=== PATIENT | male | born 1945 | race Caucasian/White ===

== ENCOUNTER 2017-08-27 10:21 | Inpatient (IN) | payer MEDICARE, OTHER, SELFPAY ==
[2017-08-27] VITALS (18 sets, daily range): BP systolic 112–142; BP diastolic 48–88; PULSE 78–107; RESP 14–18; TEMP 37.1–37.4; O2SAT 92–98; BMI 24.9
--- NOTE | 2017-08-27 | PATH_ITS ---
[facility] Accession Number: [id number] . 01 Material submitted: . APPENDIX . 02 Diagnosis: Appendix, Laparoscopic Appendectomy: Acute appendicitis and serositis. MRV/08/30/2017 . 02 Electronically signed: . Krystle Flores MD, Pathologist NPI- [id number] . 01 Gross description: . Received in formalin, labeled 1. Appendix, is an intact appendix (length-5.1 cm, diameter-up to 1.2 cm). The resection margin is received opened. The serosa is urias-pink smooth and shiny and partially covered in urias flaky friable exudate. The lumen contains burton-pink solid soft material. The wall is up to 0.3 cm thick. No nodules, masses or lesions are identified. The resection margin is inked black. Section code: (A1) resection margin en face and two additional slices; (A2) one-half of the bivalved tip. ([id number]) /MRV . 02 Pathologist provided ICD-10: K35.80 . 02 CPT . 996936 Performed at: 01 [facility] [address] [place] [address], [place], [place] [id number] MD Adrian Paz MD Phone: [phone] Performed at: 02 [facility] [address] [place], [place] [id number] MD Ad Burgos MD Phone: [phone]
--- NOTE | 2017-08-27 10:40 | DI.CT.S_ITS ---
PROCEDURE: CT ABDOMEN PELVIS W CON INDICATIONS: RLQ Pain TECHNIQUE: After the administration of intravenous contrast, 5 mm thick sections acquired from the diaphragm to the symphysis. 5 mm coronal and sagittal reformats were acquired. For radiation dose reduction, the following was used: automated exposure control, adjustment of mA and/or kV according to patient size. COMPARISON: None. FINDINGS: Image quality: Excellent. ABDOMEN: Lung bases: Lung bases are clear. Heart size is normal. Solid organs: Liver is normal in size and enhancement. Gallbladder appears normal, partially contracted. Biliary system is non dilated. Pancreas enhances normally. Spleen is normal in size and enhancement. No adrenal nodules. Kidneys demonstrate normal size and enhancement, without hydronephrosis. Incidental note is made of an exophytic anterior left renal cortical cysts measuring up to 3.5 cm. Peritoneum and bowel: Bowel loops demonstrate normal wall thickness but the colonic caliber is collapsed in the small bowel caliber is largely fluid-distended over the upper and midabdomen. No free air. There is a small amount of free fluid Nodes and vessels: No retroperitoneal or mesenteric adenopathy by size criteria. Aorta and inferior vena cava are normal in size. Miscellaneous: No ventral hernias. The anatomy of the right lower quadrant and right lower abdomen is somewhat complex, and the colon is relatively collapsed when compared to small bowel loops that are abnormally fluid distended. The ileocecal valve is located at the right lower abdomen (series 2 image 48) and slightly more inferiorly emanating from the medial border of the cecum is a structure likely the appendix (image 53 which appears inflamed (image 55) and abnormally enlarged in caliber at 1.7 cm. This structure then appears to curved medially for short distance and terminates (image 57). There is a portion of the small bowel that is collapsed at the right lower abdomen (see the lateral border on the right in series 2 image 56). PELVIS: Genitourinary: Bladder wall thickness is normal. Miscellaneous: No inguinal hernias or adenopathy. Bones: No suspicious bony lesions. No vertebral body compression fractures. IMPRESSION: High-grade small bowel obstructive pattern but with relative collapse of the small bowel at the distal ileum and the colon also appears collapsed. The etiology is suspected to be a sequela of acute appendicitis involving a short segment appendix, discussed above, with appendiceal diameter measuring up to 1.7 cm. The as noted above this structure appears to emanate from the medial border of the cecum, appears inflamed, and then terminates abruptly. Assuming that this does represent the appendix it is only estimated to be approximately 4-5 centimeters in length. Surgical consultation is recommended. Dictated by: Chong Meadows M.D. on 08/27/2017 at 12:16 Approved by: Chong Meadows M.D. on 08/27/2017 at 12:26
[2017-08-27] MEDS: SODIUM CHLORIDE 0.9% 1,000 ML 250 ML IV (11:05)
[2017-08-27 11:06] LABS: Bacteria Urine None Seen; WBC Urine None Seen (0-5/HPF)
[2017-08-27 11:07] LABS: Appearance Urine UA CLEAR; Bilirubin Urine UA 2+ (NEGATIVE); Color Urine UA YELLOW; Glucose Urine UA NEGATIVE (Normal); Ketones Urine UA NEGATIVE (NEGATIVE); Leukocyte Esterase Urine UA NEGATIVE (NEGATIVE); Nitrite Urine UA Negative (Negative); Occult Blood Urine UA 2+ (Negative); Protein Urine UA 2+ (Negative); Specific Gravity Urine UA >=1.030 (1.000-1.035); Urobilinogen Urine UA 0.2 E.U./dL (0.2)
[2017-08-27] MEDS: DICYCLOMINE 10 MG CAPSULE 20 MG PO (11:15)
[2017-08-27] MEDS: ONDANSETRON 8 MG in SODIUM CHLORIDE 0.9% 50 ML 216 ML IV (11:15)
[2017-08-27 11:25] LABS: Hyaline Casts Urine 5-10/LPF; RBC Urine 5-10/HPF (0-5/HPF); Squamous Epithelial Cell Urine 1-5 /HPF
[2017-08-27 11:26] LABS: Culture Indicated Urine Cult Not Indicated; Ictotest Urine Positive (Negative)
[2017-08-27 11:28] LABS: Add Manual Diff / Slide Review NO; Basophils Percent Auto 0.1 % (0-2); Hematocrit 41.6 % (41-53); Hemoglobin 14.5 g/dL (13.5-17.5); Mean Corpuscular HGB Conc 34.9 % (30-36); Mean Corpuscular Hemoglobin 35.3 PG (26-34); Mean Corpuscular Volume 101.2 fL (80-100); Monocytes Percent Auto 4.5 % (3-14); Neutrophils Absolute Auto 12500 /uL (3000-5900); Neutrophils Percent Auto 88.4 % (50-75); Platelet Count 135 X10^3/uL (150-400); Red Blood Cell Count 4.11 X10^6/uL (4.5-5.9); Red Cell Distribution Width 12.6 % (11.6-14.8); White Blood Cell Count 14.1 X10^3/uL (4.5-11.0)
[2017-08-27 11:42] LABS: Alanine Aminotransferase 24 IU/L (21-72); Albumin 4.7 g/dL (3.5-5.0); Albumin Globulin Ratio 1.1 (1.0-2.8); Alkaline Phosphatase 66 U/L (38-126); Aspartate Aminotransferase 32 IU/L (17-59); BUN Creatinine Ratio 25.5 (6-22); Bilirubin Total 1.1 mg/dL (0.2-1.3); Blood Urea Nitrogen 28 mg/dL (9-20); Calcium 10.1 mg/dL (8.4-10.2); Carbon Dioxide 34 mmol/L (22-32); Chloride 92 mmol/L (98-107); Estimated Glomerular Filt Rate > 60.0 mL/min (>60); Globulin 4.2 g/dL (1.7-4.1); Glucose 130 mg/dL (80-110); HEMOLYSIS 23 (0-50); Lactate (Lactic Acid) 1.6 mmol/L (0.7-2.1); Lipase 68 U/L (23-300); Potassium 3.7 mmol/L (3.4-5.1); Sodium 140 mmol/L (137-145); Total Protein 8.9 g/dL (6.3-8.2)
[2017-08-27 12:08] LABS: Procalcitonin 3.15 ng/mL (<0.5)
--- NOTE | 2017-08-27 12:45 | PC.NURSE ---
rtr from ct, iv now reconected. pt resting
[2017-08-27] MEDS: AMPICILLIN/SULBACTAM 3 GM 3 GM in SODIUM CHLORIDE 0.9% 100 ML IV (14:04)
--- NOTE | 2017-08-27 14:27 | DI.RAD.S_ITS ---
PROCEDURE: XR ABDOMEN 1V INDICATIONS: nasal gastric tube placement TECHNIQUE: One view of the abdomen acquired. COMPARISON: None. FINDINGS: Surgical changes and devices: Gastric tube placed, reportedly nasogastric, with tip in the gastric body area, superiorly. Side port is well within the gastric lumen.. Bowel: Bowel gas pattern is normal. Soft tissues: No suspicious abdominal calcifications. Visualized solid organ contours appear normal in size. Bones: No suspicious bony lesions. IMPRESSION: Esophagogastric tube placement appears normal. Dictated by: Chong Meadows M.D. on 08/27/2017 at 14:55 Approved by: Chong Meadows M.D. on 08/27/2017 at 14:56
--- NOTE | 2017-08-27 15:01 | ED_ITS ---
HPI - Abdominal Pain General Chief Complaint: Abdominal Pain Stated Complaint: THINKS HE'S HAVING PROBLEMS WITH APPENDIX Time Seen by Provider: 08/27/17 10:28 History of Present Illness HPI narrative: HPI 71-year-old male presents for evaluation of 3 days of frequent loose watery stools, decreased PO intake, postprandial emesis, and mild to moderate diffuse crampy abdominal discomfort. * Character: non-bloody, no mucus, no pus. * Frequency: reports Q30 minute loose watery stools. * Duration: 3 days * Denies: recent antibiotics, fresh or salt water exposure, recent hospitalization, travel, drinking untreated water, history of c. difficile. * Fever/chills/rigors: denies. * HIV or immunocompromise: denies. * Cough: denies. M/S/F/SocHx notable for: CAD; remainder reviewed with patient and in chart. ROS: Negative constitutional, eye, cardiovascular, pulmonary, GI, , MSK, skin , neurologic, psychiatric, endocrine unless noted in the HPI. Exam Gen: Pleasant, non-toxic appearing, resting comfortably. HEENT: NC, AT, PEERL, EOMI, neck supple with full range of movement. Resp: Clear to auscultation bilaterally, normal work of breathing, no accessory muscle usage. Card: Regular rate and rhythm with no murmurs, rubs, or gallops, extremities warm and well perfused. GI: mild diffuse, right greater than left sided tenderness to palpation, no focal reproducible areas of tenderness, negative Farah sign, no rebound, no guarding. : No suprapubic tenderness to palpation. MSK: No visible deformities, strength and tone without visually appreciable deficit. Skin: Normal color with no visible lesions. Neuro: AO x 3, no facial asymmetry, vision and hearing WNL. Psych: Mood and affect appropriate. Labs / Imaging (pertinent): WBC 14.1, hemoglobin 14.5, sodium 140, potassium 3.7, lactic acid 1.6, creatinine 1.10, Procalcitonin 3.15 UA - 2+ occult blood, negative nitrate, negative leukocyte esterase, no bacteria. CT abdomen/pelvis: high grade small bowel obstruction pattern but with relative collapses small bowel of the distal ileum in the colon also appears collapse. The etiology is suspected to be sequela of acute appendicitis involving short segment appendix, discussed above, with appendiceal diameter measuring up to 1.7 cm. The as noted above this structure appears to emanate from the medial border of the cecum, appears inflamed, and then terminates abruptly. Assuming that this does represent the appendix is only estimated to be approximately 4-5 cm in length. Surgical consultation is recommended. MDM Previous chart, nursing note, and vitals reviewed. A: 71-year-old male presents for evaluation of 3 days of frequent loose watery stools, decreased PO intake, postprandial emesis, and mild to moderate diffuse crampy abdominal discomfort. DDx: viral enteritis, viral gastroenteritis, bacterial gastroenteritis, food poisoning, C. Difficile, dehydration, electrolyte abnormalities, septicemia/ bacteremia, DKA, acute appendicitis, inflammatory (Crohn?s vs ulcerative colitis ). Evaluation: patient given IV hydration and Bentyl for initial symptomatic management. Initial labs concerning for a bacterial enteritis process. Imaging notable for high grade small bowel obstruction and likely acute appendicitis. Dr. Chavez, the general surgeon nurse practitioner physician assistant consulted. Unasyn given a NG placed at surgery's request. Pt admitted. Impression: obstruction, appendicitis. (please reference below for remainder of encounter information) Related Data Home Medications Medication Instructions Recorded Confirmed Naturepathic Meds 1 dose PO DAILY 08/27/17 08/27/17 aspirin 162 mg PO BEDTIME 08/27/17 08/27/17 ezetimibe 10 mg PO QPM 08/27/17 08/27/17 lisinopril 10 mg PO BEDTIME 08/27/17 08/27/17 rosuvastatin 40 mg PO BEDTIME 08/27/17 08/27/17 Allergies Allergy/AdvReac Type Severity Reaction Status Date / Time No Known Drug Allergies Allergy Verified 08/27/17 11:14 Exam Initial Vital Signs Initial Vital Signs: Vital Signs Temperature 99.1 F 08/27/17 10:27 Pulse Rate 97 H 08/27/17 10:27 Respiratory Rate 18 08/27/17 10:27 Blood Pressure 138/88 H 08/27/17 10:27 Pulse Oximetry 98 08/27/17 10:27 Course Orders Ordered: ED Orders 08/27/17 10:40 CT abdomen pelvis w con Stat 08/27/17 10:58 Ictotest Urine Stat Urinalysis and Microscopic Stat 08/27/17 11:05 Complete Blood Count AUTO DIFF Stat Comprehensive Metabolic Panel Stat Lactate (Lactic Acid) Stat Lipase Stat Magnesium Stat Procalcitonin Stat 08/27/17 14:27 XR abdomen 1V Stat Discontinued Medications Dicyclomine HCl (Bentyl) 20 mg PO NOW ONE Stop: 08/27/17 10:41 Last Admin: 08/27/17 11:15 Dose: 20 mg Ondansetron HCl 8 mg/ Sodium (Chloride) 54 mls @ 216 mls/hr IV NOW ONE Stop: 08/27/17 10:41 Last Infusion: 08/27/17 11:38 Dose: 0 mls/hr Admin: 08/27/17 11:15 Dose: 216 mls/hr Sodium Chloride (Normal Saline 0.9%) 1,000 mls @ 1,000 mls/hr IV BOLUS ONE Stop: 08/27/17 11:39 Last Infusion: 08/27/17 14:04 Dose: 0 mls/hr Infusion: 08/27/17 11:39 Dose: 999 mls/hr Admin: 08/27/17 11:05 Dose: 250 mls/hr Ampicillin Sodium/Sulbactam (Sodium 3 gm/ Sodium Chloride) 100 mls @ 100 mls/ hr IV NOW ONE Stop: 08/27/17 13:31 Last Admin: 08/27/17 14:04 Dose: 100 mls/hr Vital Signs - 8 hr 08/27/17 10:27 08/27/17 11:00 08/27/17 12:22 Temperature 99.1 F Pulse Rate 97 H 107 H 93 H Respiratory Rate 18 Blood Pressure 138/88 H Blood Pressure [Right Arm] 113/78 120/74 Pulse Oximetry 98 94 08/27/17 12:30 08/27/17 13:00 08/27/17 13:33 Temperature Pulse Rate 98 H 89 90 Respiratory Rate 16 Blood Pressure Blood Pressure [Right Arm] 121/79 H 121/72 H 128/72 H Pulse Oximetry 95 93 93 08/27/17 14:00 Temperature Pulse Rate 94 H Respiratory Rate 15 Blood Pressure Blood Pressure [Right Arm] 126/76 H Pulse Oximetry 97 MDM - Abdominal Pain Lab Data Result diagrams: 08/27/17 11:05 08/27/17 11:05 Lab Results 08/27/17 08/27/17 08/27/17 Range/Units 10:58 11:05 11:05 WBC 14.1 H (4.5-11.0) X10^3/uL RBC 4.11 L (4.5-5.9) X10^6/uL Hgb 14.5 (13.5-17.5) g/dL Hct 41.6 (41-53) % MCV 101.2 H (80-100) fL MCH 35.3 H (26-34) PG MCHC 34.9 (30-36) % RDW 12.6 (11.6-14.8) % Plt Count 135 L (150-400) X10^3/uL Neut % (Auto) 88.4 H (50-75) % Lymph % (Auto) 7.0 L (25-40) % [place] % (Auto) 4.5 (3-14) % Eos % (Auto) 0.0 L (2-4) % Baso % (Auto) 0.1 (0-2) % Neut # (Auto) 00377 H (5871-5042) /uL Sodium (137-145) mmol/L Potassium (3.4-5.1) mmol/L Chloride (98-107) mmol/L Carbon Dioxide (22-32) mmol/L BUN (9-20) mg/dL Creatinine (0.66-1.25) mg/dL Estimated GFR (>60) mL/min BUN/Creatinine Ratio (6-22) Glucose (80-110) mg/dL Lactate (0.7-2.1) mmol/L Calcium (8.4-10.2) mg/dL Magnesium (1.6-2.3) mg/dL Total Bilirubin (0.2-1.3) mg/dL AST (17-59) IU/L ALT (21-72) IU/L Alkaline Phosphatase (38-126) U/L Total Protein (6.3-8.2) g/dL Albumin (3.5-5.0) g/dL Globulin (1.7-4.1) g/dL Albumin/Globulin Ratio (1.0-2.8) Lipase (23-300) U/L Procalcitonin 3.15 H (<0.5) ng/mL Urine Color Yellow Urine Appearance Clear Urine pH 5.0 (4.5-8.0) Ur Specific [place] >=1.030 H (1.000-1.035) Urine Protein 2+ H (Negative) Urine Glucose (UA) Negative (Normal) g/dL Urine Ketones Negative (NEGATIVE) Urine Occult Blood 2+ H (Negative) Urine Nitrate Negative (Negative) Urine Bilirubin 2+ H (NEGATIVE) Urine Ictotest Positive H (Negative) Urine Urobilinogen 0.2 (0.2) E.U./dL Ur Leukocyte Esterase Negative (NEGATIVE) Urine RBC 5-10/hpf H (0-5/HPF) Urine WBC None seen (0-5/HPF) Ur Squamous Epith Cells 1-5 /hpf Urine Bacteria None seen (None) Hyaline Casts 5-10/lpf (None) Ur Culture Indicated? Cult not indicated Micro UA Comment Not Reportable 08/27/17 08/27/17 Range/Units 11:05 11:05 WBC (4.5-11.0) X10^3/uL RBC (4.5-5.9) X10^6/uL Hgb (13.5-17.5) g/dL Hct (41-53) % MCV (80-100) fL MCH (26-34) PG MCHC (30-36) % RDW (11.6-14.8) % Plt Count (150-400) X10^3/uL Neut % (Auto) (50-75) % Lymph % (Auto) (25-40) % [place] % (Auto) (3-14) % Eos % (Auto) (2-4) % Baso % (Auto) (0-2) % Neut # (Auto) (7789-0077) /uL Sodium 140 (137-145) mmol/L Potassium 3.7 (3.4-5.1) mmol/L Chloride 92 L (98-107) mmol/L Carbon Dioxide 34 H (22-32) mmol/L BUN 28 H (9-20) mg/dL Creatinine 1.10 (0.66-1.25) mg/dL Estimated GFR > 60.0 (>60) mL/min BUN/Creatinine Ratio 25.5 H (6-22) Glucose 130 H (80-110) mg/dL Lactate 1.6 (0.7-2.1) mmol/L Calcium 10.1 (8.4-10.2) mg/dL Magnesium 3.0 H (1.6-2.3) mg/dL Total Bilirubin 1.1 (0.2-1.3) mg/dL AST 32 (17-59) IU/L ALT 24 (21-72) IU/L Alkaline Phosphatase 66 (38-126) U/L Total Protein 8.9 H (6.3-8.2) g/dL Albumin 4.7 (3.5-5.0) g/dL Globulin 4.2 H (1.7-4.1) g/dL Albumin/Globulin Ratio 1.1 (1.0-2.8) Lipase 68 (23-300) U/L Procalcitonin (<0.5) ng/mL Urine Color Urine Appearance Urine pH (4.5-8.0) Ur Specific [place] (1.000-1.035) Urine Protein (Negative) Urine Glucose (UA) (Normal) g/dL Urine Ketones (NEGATIVE) Urine Occult Blood (Negative) Urine Nitrate (Negative) Urine Bilirubin (NEGATIVE) Urine Ictotest (Negative) Urine Urobilinogen (0.2) E.U./dL Ur Leukocyte Esterase (NEGATIVE) Urine RBC (0-5/HPF) Urine WBC (0-5/HPF) Ur Squamous Epith Cells Urine Bacteria (None) Hyaline Casts (None) Ur Culture Indicated? Micro UA Comment Discharge Plan Departure Admit Date/Time: 08/27/17 14:43 Admit Provider: Quique Chavez
--- NOTE | 2017-08-27 16:04 | PM.HP.1 ---
History of Present Illness Date Patient Seen: 08/27/17 Time Patient Seen: 14:04 Chief complaint: Small bowel obstruciton, appendicitis Narrative: Patient is a gentleman who developed abdominal pain and diarrhea 3 days ago. He had 2 episodes of diarrhea and then was does passing what he describes is mostly just a little bit of liquid. He has not been able to eat due to nausea and vomiting for at least 2 days. This has never happened to him before. The pain increases with movement. It is a fairly persistent pain/dull ache with exacerbations with movement. Patient History Medical History Essential hypertension (Acute) Hypercholesterolemia (Acute) History of arm fracture (Resolved) History of lower leg fracture (Resolved) History of myocardial infarction in adulthood (Inactive) Surgical History Hx of heart artery stent (Inactive) Family & Social History Family History: Reviewed 08/27/17 by Quique Chavez MD Tobacco & Substance use: alcohol intake frequency 0-2 drinks per day Substance Use Type does not use Does not smoke and never has Meds Home Medications Medication Instructions Recorded Confirmed Type Naturepathic Meds 1 dose PO DAILY 08/27/17 08/27/17 History aspirin 162 mg PO BEDTIME 08/27/17 08/27/17 History ezetimibe 10 mg PO QPM 08/27/17 08/27/17 History lisinopril 10 mg PO BEDTIME 08/27/17 08/27/17 History rosuvastatin 40 mg PO BEDTIME 08/27/17 08/27/17 History Allergies Allergy/AdvReac Type Severity Reaction Status Date / Time No Known Drug Allergies Allergy Verified 08/27/17 11:14 Review of Systems Review of Systems Patient denies any double vision or pain is eyes. He does were glasses. No earache sore throat. No trouble swallowing. No cough cold or asthma. No chest pain. He is very active. He had a heart attack at age 43 and a stent that failed but he has had no symptoms for years and has seen the same ski patrol for the last 30. He is basically treated for hypertension and for elevated cholesterol. Patient denies black or bloody bowel movements. He does not know when his last colonoscopy was but thinks he is current. He has had problems urinating because of decreased output since he has been sick. Ordinarily has no problems. No history kidney stones. He thinks he starting develop arthritis in his knees. No chronic joint or muscle pain at this time. Patient has no blood in his stool and has not vomited any blood. No problems with his pancreas of thyroid he is aware of. No psychiatric illnesses like depression or anxiety. No unusual bruising or bleeding. Exam Vital Signs (past 8 hours): Vital Signs - 8 hr 08/27/17 10:27 08/27/17 11:00 08/27/17 12:22 Temperature 99.1 F Pulse Rate 97 H 107 H 93 H Respiratory Rate 18 Blood Pressure 138/88 H Blood Pressure [Right Arm] 113/78 120/74 Pulse Oximetry 98 94 08/27/17 12:30 08/27/17 13:00 08/27/17 13:33 Temperature Pulse Rate 98 H 89 90 Respiratory Rate 16 Blood Pressure Blood Pressure [Right Arm] 121/79 H 121/72 H 128/72 H Pulse Oximetry 95 93 93 08/27/17 14:00 08/27/17 15:10 Temperature Pulse Rate 94 H 97 H Respiratory Rate 15 Blood Pressure Blood Pressure [Right Arm] 126/76 H 136/71 H Pulse Oximetry 97 92 Pulse Oximetry 92 Oxygen Delivery Method Room Air Narrative Exam Narrative: Operative gentleman no apparent distress. His eyes are nonicteric pupils are equal round reactive like conjunctiva are pink. Ears without lesion. Nasal septum is midline no obvious polyps. Oral mucosa is pink and moist no open lesions. Teeth are intact looking good shape. The splits is lips. There are no nodes in the neck or supraclavicular areas. Trachea is midline and mobile. Thyroid isn't enlarged. Lungs are clear to auscultation without rales or rhonchi. Equal percussion. Heart regular rate and rhythm without murmur gallop. No heave buckle wire inserter thrill. His abdomen is distended and soft. He has localized tenderness the right lower quadrant with some referred tenderness to the right lower quadrant. The remainder of his abdomen that was essentially nontender. He has no hernia and normal pitch hyper active bowel sounds. No obvious enlargement of his liver spleen. His hair pattern in his legs is a normal adult pattern. Reaches to his feet. He has 2+ dorsalis pedis pulses. The patient is alert and oriented x3. Speech rate and content are appropriate. Objective Imaging CT scan - abdomen: My impression: CT is consistent with appendicitis causing a small-bowel obstruction. There is dilatation of the small bowel and the stomach is somewhat dilated as well. Radiologist's impression: Confirms the above. Labs Result Diagrams: 08/27/17 11:05 08/27/17 11:05 Labs: Laboratory Results - last 24 hr 08/27/17 08/27/17 08/27/17 10:58 11:05 11:05 WBC 14.1 H RBC 4.11 L Hgb 14.5 Hct 41.6 MCV 101.2 H MCH 35.3 H MCHC 34.9 RDW 12.6 Plt Count 135 L Neut % (Auto) 88.4 H Lymph % (Auto) 7.0 L [place] % (Auto) 4.5 Eos % (Auto) 0.0 L Baso % (Auto) 0.1 Neut # (Auto) 88878 H Sodium Potassium Chloride Carbon Dioxide BUN Creatinine Estimated GFR BUN/Creatinine Ratio Glucose Lactate Calcium Magnesium Total Bilirubin AST ALT Alkaline Phosphatase Total Protein Albumin Globulin Albumin/Globulin Ratio Lipase Procalcitonin 3.15 H Urine Color Yellow Urine Appearance Clear Urine pH 5.0 Ur Specific [place] >=1.030 H Urine Protein 2+ H Urine Glucose (UA) Negative Urine Ketones Negative Urine Occult Blood 2+ H Urine Nitrate Negative Urine Bilirubin 2+ H Urine Ictotest Positive H Urine Urobilinogen 0.2 Ur Leukocyte Esterase Negative Urine RBC 5-10/hpf H Urine WBC None seen Ur Squamous Epith Cells 1-5 /hpf Urine Bacteria None seen Hyaline Casts 5-10/lpf Ur Culture Indicated? Cult not indicated Micro UA Comment Not Reportable 08/27/17 08/27/17 11:05 11:05 WBC RBC Hgb Hct MCV MCH MCHC RDW Plt Count Neut % (Auto) Lymph % (Auto) [place] % (Auto) Eos % (Auto) Baso % (Auto) Neut # (Auto) Sodium 140 Potassium 3.7 Chloride 92 L Carbon Dioxide 34 H BUN 28 H Creatinine 1.10 Estimated GFR > 60.0 BUN/Creatinine Ratio 25.5 H Glucose 130 H Lactate 1.6 Calcium 10.1 Magnesium 3.0 H Total Bilirubin 1.1 AST 32 ALT 24 Alkaline Phosphatase 66 Total Protein 8.9 H Albumin 4.7 Globulin 4.2 H Albumin/Globulin Ratio 1.1 Lipase 68 Procalcitonin Urine Color Urine Appearance Urine pH Ur Specific [place] Urine Protein Urine Glucose (UA) Urine Ketones Urine Occult Blood Urine Nitrate Urine Bilirubin Urine Ictotest Urine Urobilinogen Ur Leukocyte Esterase Urine RBC Urine WBC Ur Squamous Epith Cells Urine Bacteria Hyaline Casts Ur Culture Indicated? Micro UA Comment Assessment & Plan Plan: Assessment/Plan Narrative: Patient is a gentleman with a distant history of a heart attack who is on medication for hypertension and elevated cholesterol. He is very active and does not have cardiac symptoms. He sees a ski patrol regularly and is not on medications specifically for anything related to his heart. He has a 3 day history of abdominal pain and with tenderness in the right lower quadrant and distention and a CT scan consistent with appendicitis causing an obstruction. It is impossible for me to tell if there is perforation or not. Will proceed to the operating room after broad-spectrum antibiotics. I would like to resuscitate him. NG tube has been placed to the gastric distension. That has been relieved. To the OR later today.
--- NOTE | 2017-08-27 16:17 | P.HP_ITS ---
History of Present Illness Date Patient Seen: 08/27/17 Time Patient Seen: 14:04 Chief complaint: Small bowel obstruciton, appendicitis Narrative: Patient is a gentleman who developed abdominal pain and diarrhea 3 days ago. He had 2 episodes of diarrhea and then was does passing what he describes is mostly just a little bit of liquid. He has not been able to eat due to nausea and vomiting for at least 2 days. This has never happened to him before. The pain increases with movement. It is a fairly persistent pain/dull ache with exacerbations with movement. Patient History Medical History Essential hypertension (Acute) Hypercholesterolemia (Acute) History of arm fracture (Resolved) History of lower leg fracture (Resolved) History of myocardial infarction in adulthood (Inactive) Surgical History Hx of heart artery stent (Inactive) Family & Social History Family History: Reviewed 08/27/17 by Quique Chavez MD Tobacco & Substance use: alcohol intake frequency 0-2 drinks per day Substance Use Type does not use Does not smoke and never has Meds Home Medications Medication Instructions Recorded Confirmed Type Naturepathic Meds 1 dose PO DAILY 08/27/17 08/27/17 History aspirin 162 mg PO BEDTIME 08/27/17 08/27/17 History ezetimibe 10 mg PO QPM 08/27/17 08/27/17 History lisinopril 10 mg PO BEDTIME 08/27/17 08/27/17 History rosuvastatin 40 mg PO BEDTIME 08/27/17 08/27/17 History Allergies Allergy/AdvReac Type Severity Reaction Status Date / Time No Known Drug Allergies Allergy Verified 08/27/17 11:14 Review of Systems Review of Systems Patient denies any double vision or pain is eyes. He does were glasses. No earache sore throat. No trouble swallowing. No cough cold or asthma. No chest pain. He is very active. He had a heart attack at age 43 and a stent that failed but he has had no symptoms for years and has seen the same medical resident for the last 30. He is basically treated for hypertension and for elevated cholesterol. Patient denies black or bloody bowel movements. He does not know when his last colonoscopy was but thinks he is current. He has had problems urinating because of decreased output since he has been sick. Ordinarily has no problems. No history kidney stones. He thinks he starting develop arthritis in his knees. No chronic joint or muscle pain at this time. Patient has no blood in his stool and has not vomited any blood. No problems with his pancreas of thyroid he is aware of. No psychiatric illnesses like depression or anxiety. No unusual bruising or bleeding. Exam Vital Signs (past 8 hours): Vital Signs - 8 hr 3 08/27/17 10:27 08/27/17 11:00 08/27/17 12:22 Temperature 99.1 F Pulse Rate 97 H 107 H 93 H Respiratory Rate 18 Blood Pressure 138/88 H Blood Pressure [Right Arm] 113/78 120/74 Pulse Oximetry 98 94 3 08/27/17 12:30 08/27/17 13:00 08/27/17 13:33 Temperature Pulse Rate 98 H 89 90 Respiratory Rate 16 Blood Pressure Blood Pressure [Right Arm] 121/79 H 121/72 H 128/72 H Pulse Oximetry 95 93 93 3 08/27/17 14:00 08/27/17 15:10 Temperature Pulse Rate 94 H 97 H Respiratory Rate 15 Blood Pressure Blood Pressure [Right Arm] 126/76 H 136/71 H Pulse Oximetry 97 92 Pulse Oximetry 92 Oxygen Delivery Method Room Air Narrative Exam Narrative: Operative gentleman no apparent distress. His eyes are nonicteric pupils are equal round reactive like conjunctiva are pink. Ears without lesion. Nasal septum is midline no obvious polyps. Oral mucosa is pink and moist no open lesions. Teeth are intact looking good shape. The splits is lips. There are no nodes in the neck or supraclavicular areas. Trachea is midline and mobile. Thyroid isn't enlarged. Lungs are clear to auscultation without rales or rhonchi. Equal percussion. Heart regular rate and rhythm without murmur gallop. No heave studio associate thrill. His abdomen is distended and soft. He has localized tenderness the right lower quadrant with some referred tenderness to the right lower quadrant. The remainder of his abdomen that was essentially nontender. He has no hernia and normal pitch hyper active bowel sounds. No obvious enlargement of his liver spleen. His hair pattern in his legs is a normal adult pattern. Reaches to his feet. He has 2+ dorsalis pedis pulses. The patient is alert and oriented x3. Speech rate and content are appropriate. Objective Imaging CT scan - abdomen: My impression: CT is consistent with appendicitis causing a small-bowel obstruction. There is dilatation of the small bowel and the stomach is somewhat dilated as well. Radiologist's impression: Confirms the above. Labs Result Diagrams: 08/27/17 11:05 08/27/17 11:05 Labs: Laboratory Results - last 24 hr 08/27/17 08/27/17 08/27/17 10:58 11:05 11:05 WBC 14.1 H RBC 4.11 L Hgb 14.5 Hct 41.6 MCV 101.2 H MCH 35.3 H MCHC 34.9 RDW 12.6 Plt Count 135 L Neut % (Auto) 88.4 H Lymph % (Auto) 7.0 L [place] % (Auto) 4.5 Eos % (Auto) 0.0 L Baso % (Auto) 0.1 Neut # (Auto) 44184 H Sodium Potassium Chloride Carbon Dioxide BUN Creatinine Estimated GFR BUN/Creatinine Ratio Glucose Lactate Calcium Magnesium Total Bilirubin AST ALT Alkaline Phosphatase Total Protein Albumin Globulin Albumin/Globulin Ratio Lipase Procalcitonin 3.15 H Urine Color Yellow Urine Appearance Clear Urine pH 5.0 Ur Specific [place] >=1.030 H Urine Protein 2+ H Urine Glucose (UA) Negative Urine Ketones Negative Urine Occult Blood 2+ H Urine Nitrate Negative Urine Bilirubin 2+ H Urine Ictotest Positive H Urine Urobilinogen 0.2 Ur Leukocyte Esterase Negative Urine RBC 5-10/hpf H Urine WBC None seen Ur Squamous Epith Cells 1-5 /hpf Urine Bacteria None seen Hyaline Casts 5-10/lpf Ur Culture Indicated? Cult not indicated Micro UA Comment Not Reportable 08/27/17 08/27/17 11:05 11:05 WBC RBC Hgb Hct MCV MCH MCHC RDW Plt Count Neut % (Auto) Lymph % (Auto) [place] % (Auto) Eos % (Auto) Baso % (Auto) Neut # (Auto) Sodium 140 Potassium 3.7 Chloride 92 L Carbon Dioxide 34 H BUN 28 H Creatinine 1.10 Estimated GFR > 60.0 BUN/Creatinine Ratio 25.5 H Glucose 130 H Lactate 1.6 Calcium 10.1 Magnesium 3.0 H Total Bilirubin 1.1 AST 32 ALT 24 Alkaline Phosphatase 66 Total Protein 8.9 H Albumin 4.7 Globulin 4.2 H Albumin/Globulin Ratio 1.1 Lipase 68 Procalcitonin Urine Color Urine Appearance Urine pH Ur Specific [place] Urine Protein Urine Glucose (UA) Urine Ketones Urine Occult Blood Urine Nitrate Urine Bilirubin Urine Ictotest Urine Urobilinogen Ur Leukocyte Esterase Urine RBC Urine WBC Ur Squamous Epith Cells Urine Bacteria Hyaline Casts Ur Culture Indicated? Micro UA Comment Assessment & Plan Plan: Assessment/Plan Narrative: Patient is a gentleman with a distant history of a heart attack who is on medication for hypertension and elevated cholesterol. He is very active and does not have cardiac symptoms. He sees a medical resident regularly and is not on medications specifically for anything related to his heart. He has a 3 day history of abdominal pain and with tenderness in the right lower quadrant and distention and a CT scan consistent with appendicitis causing an obstruction. It is impossible for me to tell if there is perforation or not. Will proceed to the operating room after broad-spectrum antibiotics. I would like to resuscitate him. NG tube has been placed to the gastric distension. That has been relieved. To the OR later today.
--- NOTE | 2017-08-27 17:45 | SUR.HOLD ---
care assumed report recieved. C/O bloated feeling and abdominal distention. NG tube assessed. 10cc air inserted with resistance noted, cleared with injection of air. post NG tube assessment states improved bloating/pressure in abdomen decreased. No liquid drainage noted.
[2017-08-27] MEDS: LACTATED RINGERS 1,000 ML 200 ML IV ×3 (19:44→23:49)
[2017-08-27] MEDS: CEFOTETAN 2 GM/50 ML PIGGYBACK IV (19:53)
[2017-08-27] MEDS: metroNIDAZOLE 500 MG/100 ML PIGGYBACK 100 MG IV (20:02)
--- NOTE | 2017-08-27 20:30 | SUR.OPER ---
Supine on padded OR bed, head on pillow, safety belt at thigh, left arm padded and tucked at side. Right arm secured on padded arm oard <90 degrees abduction. Legs uncrossed. Padded footboard in place. Tape over blanket to secure lower legs.
[2017-08-27] MEDS: BUPIVACAINE 0.5% (PF) 30 ML VIAL INJ (20:49)
--- NOTE | 2017-08-27 21:53 | PM.OP.1 ---
Operative Date/Time/Diagnoses - Date of procedure: 08/27/17 Time of procedure: 21:53 Pre-op diagnosis: Perforated appendicitis. Small-bowel obstruction secondary to appendicitis. Post-op diagnosis: same Procedure & Clinicians Procedure: Laparoscopic appendectomy and division of inflammatory process to free up small bowel Same procedure as scheduled: Yes Indications: Perforated appendix with bowel obstruction Surgeon: Quique Chavez Click Yes if Unassisted: Yes Anesthesia Type: General Operative Notes Findings: Perforated appendix. Adhesions of the terminal ileum mesentery to the inflamed appendix most likely source of obstructive process. SC 0 AP protocol was followed. Closure Type: primary Specimen(s): other (Appendix) Implants & Drains: 10 mm Vickey-Donnelly drain placed in the right gutter down into the pelvis Estimated Blood Loss (mL): 15 Blood products transfused: none Procedure in detail: The patient was placed supine on the operating room table and underwent general endotracheal anesthesia. He was prepped draped in usual fashion. A Williamson catheter had been inserted. Local anesthetic was infiltrated in the infraumbilical fold incision made here and carried down under direct vision into the peritoneal cavity. Stay sutures of 0 Polysorb were placed in the fascia. And son cannula was inserted in the abdomen is insufflated. Two additional ports were placed 1 between pubis and umbilicus and 1 in left lower quadrant. The small bowel was dilated and identified the area of the terminal ileum which was collapsed. The cecum appeared to be healthy but I quickly identified and necrotic appendix with the mesentery of the terminal ileum stuck densely to it. With some difficulty we raised the appendix and had to divide the adhesions sharply. The mesentery was identified and cautery used to control the artery. This was identified and cleared and a loop of 0 PDS was placed at the base and cinched down. The appendix was divided placed in a bag and the bag removed without difficulty. The right gutter and pelvis were irrigated and suctioned free of fluid. I ran the small bowel then back from the terminal ileum to where it began to get dilated and there were no other adhesions. Rectum Donnelly drain was placed in the right gutter and brought out through the suprapubic port. It was secured with 3 0 nylon. Stay sutures of the umbilicus were tied and an additional 2 0 Maxon was placed between the 2. The wounds were all irrigated and and cuticular stitches and Steri-Strips used to close the skin. Dressings were applied and the patient was extubated once awake and brought to the recovery room good condition Complications: none Condition: stable Disposition: PACU Plan for aftercare: Admit. Continue NG for now. Continue broad-spectrum antibiotics.
--- NOTE | 2017-08-27 22:02 | PC.NURSE ---
Addendum entered by Deb Pedraza R.N. 08/27/17 22:54: Pt arrived to 222 at 2020. Alert/oriented. NG tube in place and set a LIS. NATALIYA to abd intact w/red drainage noted. Three surgical areas w/ durabond CDI. Stood w/ assist at bedside to urinate. Call light w/in reach, bed alarm on for pt safety. Continue w/plan of care. Original Note: Pt went from ER to preop holding. 1600. Admit completed there prior to surgery. Pt alert/oriented, NG tube in place. Pt states abd, a little bloated. Awaiting pt arrival to , no answer in PACU at this time. Will await report.
[2017-08-27] MEDS: fentaNYL 100 MCG/2 ML INJ 25 MCG IV (22:06)
--- NOTE | 2017-08-27 22:15 | SUR.PHASEI ---
awake and alert, denies pain or nausea. maintaining ox sat with supplemental oxygen at 2L/cannula.
[2017-08-28] VITALS (14 sets, daily range): BP systolic 123–138; BP diastolic 66–89; PULSE 69–105; RESP 15–18; TEMP 35.7–37.7; O2SAT 2–97
[2017-08-28] MEDS: CEFOTETAN 2 GM/50 ML PIGGYBACK IV ×2 (00:05→11:18)
--- NOTE | 2017-08-28 02:08 | PC.NURSE ---
Addendum entered by Roxane Escobar R.N. 08/28/17 05:39: Stood at bedside with walker and 1 assist and able to void 200cc dark live urine. States it naylor with urination. Has used 6mg of BULLDOZER/LOADER/COMPACTOR/SCRAPER and denies any pain this morning even after having gotten up out of bed. Now has bile colored fluid in NG canister. Provided small amount of ice chips as per MD order. Original Note: Patient is alert and oriented. Breath sounds CTA with RA sat of 90% so oxygen restarted with nasal prong only in left nare due to NG present in right nare; sat increased to 94%. HRR. Denies nausea. BT absent; abdomen appears distended. Had catheter removed in PACU and voided 75cc upon return to floor but has not urinated since that time. Dressing to lower abdomen is CDI. NATALIYA is intact and compressed; emptied of 75cc sanguinous drainage. NG to 100mm intermittent suction with no gastric contents returning at this time. States pain well controlled except when coughing. BULLDOZER/LOADER/COMPACTOR/SCRAPER set up earlier and patient instructed in use and importance of controlling pain so that he is able to take deep breaths and cough to prevent post op complications. Is able to turn himself in bed but reminded to ask for assistance if needed. SCD's on bilaterally. Fall risk score is medium; bed alarm is activated although patient is making no attempts to get up on own. Remains NPO at this time. Does complain of sore throat and discomfort related to NG tube.
[2017-08-28] MEDS: MORPHINE PCA 30 MG/30 ML PCA.VIAL 6 MG IV (05:27)
[2017-08-28] MEDS: LACTATED RINGERS 1,000 ML 200 ML IV ×4 (05:27→20:52)
[2017-08-28 05:44] LABS: Add Manual Diff / Slide Review NO; Basophils Percent Auto 0.1 % (0-2); Hematocrit 34.1 % (41-53); Hemoglobin 11.6 g/dL (13.5-17.5); Lymphocytes Percent Auto 5.6 % (25-40); Mean Corpuscular HGB Conc 34.1 % (30-36); Mean Corpuscular Hemoglobin 34.9 PG (26-34); Mean Corpuscular Volume 102.4 fL (80-100); Monocytes Percent Auto 2.1 % (3-14); Neutrophils Absolute Auto 7700 /uL (3000-5900); Neutrophils Percent Auto 92.2 % (50-75); Platelet Count 115 X10^3/uL (150-400); Red Blood Cell Count 3.33 X10^6/uL (4.5-5.9); Red Cell Distribution Width 12.4 % (11.6-14.8); White Blood Cell Count 8.4 X10^3/uL (4.5-11.0)
[2017-08-28 05:56] LABS: BUN Creatinine Ratio 24.4 (6-22); Blood Urea Nitrogen 22 mg/dL (9-20); Calcium 8.2 mg/dL (8.4-10.2); Carbon Dioxide 27 mmol/L (22-32); Chloride 100 mmol/L (98-107); Estimated Glomerular Filt Rate > 60.0 mL/min (>60); Glucose 133 mg/dL (80-110); HEMOLYSIS < 15 (0-50); Potassium 3.9 mmol/L (3.4-5.1); Sodium 141 mmol/L (137-145)
[2017-08-28] MEDS: ENOXAPARIN 40 MG/0.4 ML SYRINGE SUBCUT (08:39)
--- NOTE | 2017-08-28 10:12 | PC.NURSE ---
IN FOR ROUNDING. PER DR. SANTIAGO REMOVE NG TUBE AND NO ICE CHIPS. MAY HAVE SIPS WITH PO MEDS. PER MD HE WILL ORDER SOME OF HIS HOME MEDICATIONS. NG TUBE REMOVED PER VVO.
[2017-08-28] MEDS: MORPHINE PCA 30 MG/30 ML PCA.VIAL IV ×2 (14:08→21:16)
[2017-08-28] MEDS: EZETIMIBE 10 MG TABLET PO (18:01)
[2017-08-28] MEDS: LISINOPRIL 10 MG TABLET PO (20:47)
[2017-08-28] MEDS: ASPIRIN EC 81 MG TABLET 162 MG PO (20:47)
[2017-08-28] MEDS: ROSUVASTATIN 10 MG TABLET 40 MG PO (20:48)
--- NOTE | 2017-08-28 21:25 | PC.NURSE ---
Kate shift note: Patient awake, pleasant and cooperative. Abdomen mildly distended, tender, hypoactive BS. Passing flatus and had x 1 episode of small BM, described as watery/brown. Ambulated in hallway approximately 20 feet with steady gait. Clarified with Dr. Chavez PO med administration during NPO status. Cleared 2 mg of MS REPACKER this shift.
[2017-08-29] VITALS (9 sets, daily range): BP systolic 110–146; BP diastolic 52–76; PULSE 52–70; RESP 13–18; TEMP 36.9–37.4; O2SAT 91–97
[2017-08-29] MEDS: CEFOTETAN 2 GM/50 ML PIGGYBACK IV ×2 (00:03→11:19)
[2017-08-29] MEDS: LACTATED RINGERS 1,000 ML 200 ML IV ×3 (03:18→14:11)
[2017-08-29] MEDS: MORPHINE PCA 30 MG/30 ML PCA.VIAL IV ×2 (06:08→14:11)
--- NOTE | 2017-08-29 06:24 | PC.NURSE ---
pt was 86%-91%RA, placed 2L NC 93%. pt is passing gas and had a small liquid stool this morning. denies n/v. NATALIYA 40cc out. alana alonso. IVF @ 200cc/hr. pain managed by PARISH NURSE morphine.
[2017-08-29] MEDS: ENOXAPARIN 40 MG/0.4 ML SYRINGE SUBCUT (08:22)
--- NOTE | 2017-08-29 08:26 | CM.DANOTE ---
DCP Assessment: Pt is a 71 yo male, resident of [facility]. Pt admitted for perforated appendicitis and SBO sec to the appendicitis. Pt states he is between doctors for PCP since Dr Diamond just left the practice in [place] but pt refers to his thread laster Dr Lema. Pt's Insurance is Medicare/[employer]. Met w/pt yesterday, explained SW role. Pt sitting up in bed reading. 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 Pt expects to DC back home when he is medically cleared w/no barriers. Pt's is scheduled for hip surgery soon and pt is planning on taking care of her post operatively. Pt expects that after he heals he will not have a problem taking care of her. Discussed Home health, pt feels he and his will manage w/support from his friends/neighbors. Pt requests this ORGANIZATIONAL DEVELOPMENT SPECIALIST return to speak w/his . I will attempt this today to review DCP. CLARA Almeida
[2017-08-29 08:44] LABS: Add Manual Diff / Slide Review NO; Basophils Percent Auto 0.4 % (0-2); Eosinophils Percent Auto 0.4 % (2-4); Hematocrit 30.9 % (41-53); Hemoglobin 10.5 g/dL (13.5-17.5); Lymphocytes Percent Auto 16.3 % (25-40); Mean Corpuscular HGB Conc 34.1 % (30-36); Mean Corpuscular Hemoglobin 35.1 PG (26-34); Mean Corpuscular Volume 103.1 fL (80-100); Monocytes Percent Auto 8.9 % (3-14); Neutrophils Absolute Auto 5600 /uL (3000-5900); Platelet Count 113 X10^3/uL (150-400); Red Cell Distribution Width 12.5 % (11.6-14.8); White Blood Cell Count 7.6 X10^3/uL (4.5-11.0)
--- NOTE | 2017-08-29 10:51 | P.PN_ITS ---
Subjective Date Patient Seen: 08/28/17 Time Patient Seen: 17:49 Interval history: This is a late entry. Patient is feeling well. Having very little pain in using very little pain medication. He is breathing okay. He has very little abdominal discomfort. Exam Vital Signs (past 8 hours): Vital Signs - 8 hr 3 08/29/17 05:40 08/29/17 07:50 08/29/17 08:33 Temperature 98.8 F 98.7 F Pulse Rate 67 52 L Respiratory Rate 13 16 Blood Pressure 136/72 H 115/61 Pulse Oximetry 96 97 97 Pulse Oximetry 97 Fraction of Inspired Oxygen 28 Oxygen Delivery Method Room Air Oxygen Flow Rate 0 Narrative Exam Narrative: Patient's wounds look fine there dry dressings. His abdomen is flatter than postop. No unusual tenderness. Lungs are clear to auscultation with good effort. Heart regular rate and rhythm without murmur gallop. Objective Labs Result Diagrams: 08/29/17 08:25 08/28/17 05:22 Labs: Laboratory Results - last 24 hr 08/29/17 08:25 WBC 7.6 RBC 3.00 L Hgb 10.5 L Hct 30.9 L MCV 103.1 H MCH 35.1 H MCHC 34.1 RDW 12.5 Plt Count 113 L Neut % (Auto) 74.0 Lymph % (Auto) 16.3 L [place] % (Auto) 8.9 Eos % (Auto) 0.4 L Baso % (Auto) 0.4 Neut # (Auto) 5600 Assessment & Plan Plan: Assessment/Plan Narrative: Labs from yesterday showed a normal white blood cell count but the differential was almost all segs. He has been afebrile. Doing fairly well. I removed his NG tube this morning when I saw him initially. He has tolerated that well. We will probably start liquids in the morning if he has return of bowel function. Quality VTE Deep Vein Thrombosis/Pulmonary Embolism Present on Admission: No
[2017-08-29 12:27] LABS: Folate 13.9 ng/mL (2.76-20.0)
[2017-08-29 13:15] LABS: Vitamin B12 275 pg/mL (239-931)
--- NOTE | 2017-08-29 15:44 | P.PN_ITS ---
Subjective Date Patient Seen: 08/29/17 Time Patient Seen: 15:39 Interval history: Patient feels well today very little abdominal pain. Passing flatus having some belching. Had 2 bowel movements. Does not really hurt to move around. Exam Vital Signs (past 8 hours): Vital Signs - 8 hr 3 08/29/17 07:50 08/29/17 08:33 08/29/17 11:20 Temperature 98.7 F 98.5 F Pulse Rate 52 L 61 Respiratory Rate 16 16 Blood Pressure 115/61 110/52 L Pulse Oximetry 97 97 91 Pulse Oximetry 91 Fraction of Inspired Oxygen 28 Oxygen Delivery Method Room Air Oxygen Flow Rate 0 Narrative Exam Narrative: Lungs clear. Abdomen is scaphoid soft there is no unusual tenderness. Drainage is serosanguineous and clear. Objective Labs Result Diagrams: 08/29/17 08:25 08/28/17 05:22 Labs: Laboratory Results - last 24 hr 08/29/17 08/29/17 08:25 Unknown WBC 7.6 RBC 3.00 L Hgb 10.5 L Hct 30.9 L MCV 103.1 H MCH 35.1 H MCHC 34.1 RDW 12.5 Plt Count 113 L Neut % (Auto) 74.0 Lymph % (Auto) 16.3 L [place] % (Auto) 8.9 Eos % (Auto) 0.4 L Baso % (Auto) 0.4 Neut # (Auto) 5600 Vitamin B12 275 Folate 13.9 Assessment & Plan Post-op (1) Acute perforated appendicitis: Current Visit: Yes Status: Acute Assessment and plan: I removed his drain this evening. Dressing applied. Will allow him to shower in the morning. Could possibly go home tomorrow. Advanced to full liquids in the a.m.. Will stop his antibiotics either later tonight or early tomorrow morning Postoperative Procedures Operation Date: 08/27/17 16:00 Actual Procedures Side Surgeon p Laparoscopic Appendectomy Quique Chavez MD Time Spent With Patient less than 15 minutes Quality VTE Deep Vein Thrombosis/Pulmonary Embolism Present on Admission: No
[2017-08-29] MEDS: DEXTROSE 5%-0.45% NS 1,000 ML 42 ML IV (17:07)
[2017-08-29] MEDS: LORazepam 2 MG/ML SYRINGE 0.5 MG IV (21:40)
[2017-08-29] MEDS: ASPIRIN EC 81 MG TABLET 162 MG PO (21:41)
[2017-08-29] MEDS: LISINOPRIL 10 MG TABLET PO (21:41)
[2017-08-29] MEDS: ROSUVASTATIN 10 MG TABLET 40 MG PO (21:44)
[2017-08-29] MEDS: EZETIMIBE 10 MG TABLET PO (22:00)
[2017-08-30] VITALS (9 sets, daily range): BP systolic 122–155; BP diastolic 58–79; PULSE 50–75; RESP 16–18; TEMP 36.8–37.7; O2SAT 92–98
--- NOTE | 2017-08-30 | DI.RAD.S_ITS ---
PROCEDURE: XR ACUTE ABDOMEN SERIES INDICATIONS: post op lap appy with sbo. F/U. feeling poorly TECHNIQUE: One view chest and two views of the abdomen were acquired. COMPARISON: [facility], CT, CT ABDOMEN PELVIS W CON, 08/27/2017, 11:40. [facility], CR, XR ABDOMEN 1V, 08/27/2017, 14:31. FINDINGS: Surgical changes and devices: None. Chest: Lungs are clear. Heart size is normal. No pleural effusions. No pneumoperitoneum. Abdomen: Dilated small bowel loops are present measuring up to 5.6 cm. No definite transition point is seen. No free air. There are scattered air-fluid levels. This may be stable to slightly progressed since a station master CT image dated 08/27/17 Bones: No suspicious bony lesions. IMPRESSION: Dilated small bowel loops and scattered air-fluid levels which appear mildly progressed since 08/27/17. Findings could represent postoperative adynamic ileus versus bowel obstruction. Please correlate clinically. Dictated by: Pierre Anglin M.D. on 08/30/2017 at 18:26 Approved by: Pierre Anglin M.D. on 08/30/2017 at 18:29
[2017-08-30] MEDS: CEFOTETAN 2 GM/50 ML PIGGYBACK IV (00:12)
[2017-08-30] MEDS: DEXTROSE 5%-0.45% NS 1,000 ML 42 ML IV (08:45)
[2017-08-30] MEDS: CYANOCOBALAMIN 1,000 MCG/ML VIAL 1000 MCG IM (08:45)
[2017-08-30] MEDS: ENOXAPARIN 40 MG/0.4 ML SYRINGE SUBCUT (08:45)
--- NOTE | 2017-08-30 11:13 | PC.NURSE ---
Pt showered and then was up walking in the halls. IV saline locked per Pt request. Spoke with Dr. Chavez who agreed to HL IV. Pt denies pain, nausea, dizziness or shortness of breath.
[2017-08-30] MEDS: ACETAMINOPHEN 325 MG TABLET 650 MG PO (13:20)
--- NOTE | 2017-08-30 13:26 | P.PN_ITS ---
Subjective Date Patient Seen: 08/30/17 Time Patient Seen: 13:25 Interval history: Patient does not feel as well as yesterday. Does vaguely nauseated. Food does not interest him. He is having multiple small bowel movements mostly liquid with a few pellets. Exam Vital Signs (past 8 hours): Vital Signs - 8 hr 3 08/30/17 07:20 08/30/17 10:00 Temperature 98.9 F Pulse Rate 55 L Respiratory Rate 16 Blood Pressure 146/69 H Pulse Oximetry 93 93 Pulse Oximetry 93 Fraction of Inspired Oxygen 28 Oxygen Delivery Method Room Air Oxygen Flow Rate 0 Narrative Exam Narrative: Respiratory effort. His lungs are clear. Heart regular rate and rhythm without murmur or gallop. Abdomen is soft and not distended. He has some bruising about the umbilicus but otherwise his wounds all look fine. He has been ambulating. Objective Labs Result Diagrams: 08/29/17 08:25 08/28/17 05:22 Assessment & Plan Post-op Postoperative Procedures Operation Date: 08/27/17 16:00 Actual Procedures Side Surgeon p Laparoscopic Appendectomy Quique Chavez MD Not doing as well as before. His cultures are back in his growing and unusual bacteria that was not sensitive to will send stool for C diff. The cefotetan and will switch him now the Cipro 500 mg p.o. b.i.d.. Will send stool for C diff. Continue to ambulate and deep breathe. I talked with his . Potential discharge for tomorrow. Postoperative status: other (Not doing as well as before.) Time Spent With Patient less than 15 minutes Quality VTE Deep Vein Thrombosis/Pulmonary Embolism Present on Admission: No
[2017-08-30] MEDS: CIPROFLOXACIN 500 MG TABLET PO ×2 (13:55→20:59)
--- NOTE | 2017-08-30 15:57 | CM.DPC ---
DCP Cont: Attempted to touch base w/pt this afternoon. Two nurses were present and discussing pt's needs and unfinished lunch. Pt not feeling very well and does not have much of an appetite. Not an approp time to complete a chk in. Following closely in case any DC needs/concerns arise. RANCHO
[2017-08-30 17:23] LABS: Clostridium Difficile Tox PCR Negative for C. diff
[2017-08-30] MEDS: ASPIRIN EC 81 MG TABLET 162 MG PO (20:58)
[2017-08-30] MEDS: ROSUVASTATIN 10 MG TABLET 40 MG PO (20:59)
[2017-08-30] MEDS: LISINOPRIL 10 MG TABLET PO (20:59)
[2017-08-30] MEDS: EZETIMIBE 10 MG TABLET PO (20:59)
[2017-08-31 00:15] VITALS: BP 155/87; PULSE 68; RESP 16; TEMP 37.2; O2SAT 93
[2017-08-31 00:40] VITALS: O2SAT 97
[2017-08-31] MEDS: LORazepam 2 MG/ML SYRINGE 0.5 MG IV (00:50)
[2017-08-31 05:52] VITALS: BP 139/68; PULSE 62; RESP 16; TEMP 37; O2SAT 93
[2017-08-31 06:04] LABS: Add Manual Diff / Slide Review NO; Basophils Percent Auto 0.4 % (0-2); Hematocrit 32.2 % (41-53); Hemoglobin 11.3 g/dL (13.5-17.5); Lymphocytes Percent Auto 14.9 % (25-40); Mean Corpuscular HGB Conc 34.9 % (30-36); Mean Corpuscular Volume 100.3 fL (80-100); Monocytes Percent Auto 12.6 % (3-14); Neutrophils Absolute Auto 4700 /uL (3000-5900); Neutrophils Percent Auto 69.1 % (50-75); Platelet Count 139 X10^3/uL (150-400); Red Blood Cell Count 3.21 X10^6/uL (4.5-5.9); Red Cell Distribution Width 12.2 % (11.6-14.8); White Blood Cell Count 6.8 X10^3/uL (4.5-11.0)
[2017-08-31 07:00] VITALS: O2SAT 96
[2017-08-31 08:08] VITALS: BP 146/77; PULSE 66; RESP 16; TEMP 37.7; O2SAT 93
[2017-08-31] MEDS: CIPROFLOXACIN 500 MG TABLET PO (09:22)
[2017-08-31] MEDS: ENOXAPARIN 40 MG/0.4 ML SYRINGE SUBCUT (09:22)
[2017-08-31] MEDS: ACETAMINOPHEN 325 MG TABLET 650 MG PO (09:22)
[2017-08-31 12:08] VITALS: BP 139/80; PULSE 64; RESP 17; TEMP 37.4; O2SAT 95
--- NOTE | 2017-08-31 12:36 | PM.DS.1 ---
History of Present Illness Date Patient Seen: 08/31/17 Time Patient Seen: 12:36 Chief complaint: Small bowel obstruciton, appendicitis Narrative: Mr. Sanchez is a very pleasant gentleman who was admitted admitted with acute appendicitis causing bowel obstruction. He is on oral antibiotics and grew an unusual bacterium not sensitive to the usual drugs. He reports today that he is feeling a little better. Still having loose bowel movements. Frustrated about that but wants to go home. Discharge Providers Date of admission: 08/27/17 14:43 Consults: 08/27/17 23:13 Consult to Discharge Planning Routine Comment: Discharge provider: Leeann Tolliver MD Summary Discharge Diagnosis: The patient was admitted and taken to the operating room for laparoscopic appendectomy and lysis of adhesions. Hospital Course: Postoperatively, the patient was returned to the [facility] floor for continued convalescence and antibiotic therapy. Currently he is on oral Cipro, walking the halls without assistance, having regular bowel movements-although liquid, and his pain is well controlled. Status at Discharge Cognitive/behavioral status at discharge: Normal Functional status at discharge: independent ambulation Overall status at discharge: patient is progressing back to baseline Time Spent with Patient Less than 30 minutes Exam Vital Signs (past 8 hours): Vital Signs - 8 hr 08/31/17 05:52 08/31/17 08:08 08/31/17 12:08 Temperature 98.6 F 100 F H 99.4 F Pulse Rate 62 66 64 Respiratory Rate 16 16 17 Blood Pressure 139/68 H 146/77 H 139/80 H Pulse Oximetry 93 93 95 Pulse Oximetry 95 Fraction of Inspired Oxygen 28 Oxygen Delivery Method Room Air Oxygen Flow Rate 0 Narrative Exam Narrative: Pleasant gentleman in no distress HEENT: Normocephalic and atraumatic, pupils equal round reactive to light accommodation with anicteric sclera Lungs: Clear bilaterally Heart: Regular rate and rhythm Abdomen: Soft, appropriately tender to palpation, active bowel sounds. Steri-Strips in place covering incisions which were all clean, dry, and well approximated. Extremities: Warm and well perfused without edema Objective Labs Result Diagrams: 08/31/17 05:43 08/28/17 05:22 Labs: Laboratory Results - last 24 hr 08/30/17 08/31/17 15:15 05:43 WBC 6.8 RBC 3.21 L Hgb 11.3 L Hct 32.2 L MCV 100.3 H MCH 35.0 H MCHC 34.9 RDW 12.2 Plt Count 139 L Neut % (Auto) 69.1 Lymph % (Auto) 14.9 L [place] % (Auto) 12.6 Eos % (Auto) 3.0 Baso % (Auto) 0.4 Neut # (Auto) 4700 C. difficile Tox (PCR) Negative for c. diff Discharge Plan Discharge Plan Patient Disposition: Home, Self-Care Discharge comment: You underwent a laparoscopic appendectomy which also showed treated your small-bowel obstruction. I am sending him home on antibiotics due to the culture I obtained during the operation. You should resume her home medications. You may take Tylenol or any [id number] pain reliever 4 year pain if you have any. Provider Discharge Instructions Diet: Diet as Tolerated Activity: Avoid lifting or straining for 3 and half weeks. 10 lb weight limit. He may shower. Avoid pool or hot tub for another [address] until pain free off medication Wound Care Report to your healthcare provider any signs of infection, such as:: chills, fever, night sweats, increased pain and unusual drainage Discharge Data Attending Provider: Quique Chavez Admit Date/Time: 08/27/17 14:43 Quality VTE Deep Vein Thrombosis/Pulmonary Embolism Present on Admission: No
--- NOTE | 2017-08-31 12:42 | P.DS_ITS ---
History of Present Illness Date Patient Seen: 08/31/17 Time Patient Seen: 12:36 Chief complaint: Small bowel obstruciton, appendicitis Narrative: Mr. Sanchez is a very pleasant gentleman who was admitted admitted with acute appendicitis causing bowel obstruction. He is on oral antibiotics and grew an unusual bacterium not sensitive to the usual drugs. He reports today that he is feeling a little better. Still having loose bowel movements. Frustrated about that but wants to go home. Discharge Providers Date of admission: 08/27/17 14:43 Consults: 08/27/17 23:13 Consult to Discharge Planning Routine Comment: Discharge provider: Leeann Tolliver MD Summary Discharge Diagnosis: The patient was admitted and taken to the operating room for laparoscopic appendectomy and lysis of adhesions. Hospital Course: Postoperatively, the patient was returned to the [facility] floor for continued convalescence and antibiotic therapy. Currently he is on oral Cipro, walking the halls without assistance, having regular bowel movements -although liquid, and his pain is well controlled. Status at Discharge Cognitive/behavioral status at discharge: Normal Functional status at discharge: independent ambulation Overall status at discharge: patient is progressing back to baseline Time Spent with Patient Less than 30 minutes Exam Vital Signs (past 8 hours): Vital Signs - 8 hr 3 08/31/17 05:52 08/31/17 08:08 08/31/17 12:08 Temperature 98.6 F 100 F H 99.4 F Pulse Rate 62 66 64 Respiratory Rate 16 16 17 Blood Pressure 139/68 H 146/77 H 139/80 H Pulse Oximetry 93 93 95 Pulse Oximetry 95 Fraction of Inspired Oxygen 28 Oxygen Delivery Method Room Air Oxygen Flow Rate 0 Narrative Exam Narrative: Pleasant gentleman in no distress HEENT: Normocephalic and atraumatic, pupils equal round reactive to light accommodation with anicteric sclera Lungs: Clear bilaterally Heart: Regular rate and rhythm Abdomen: Soft, appropriately tender to palpation, active bowel sounds. Steri- Strips in place covering incisions which were all clean, dry, and well approximated. Extremities: Warm and well perfused without edema Objective Labs Result Diagrams: 08/31/17 05:43 08/28/17 05:22 Labs: Laboratory Results - last 24 hr 08/30/17 08/31/17 15:15 05:43 WBC 6.8 RBC 3.21 L Hgb 11.3 L Hct 32.2 L MCV 100.3 H MCH 35.0 H MCHC 34.9 RDW 12.2 Plt Count 139 L Neut % (Auto) 69.1 Lymph % (Auto) 14.9 L [place] % (Auto) 12.6 Eos % (Auto) 3.0 Baso % (Auto) 0.4 Neut # (Auto) 4700 C. difficile Tox (PCR) Negative for c. diff Discharge Plan Discharge Plan Patient Disposition: Home, Self-Care Discharge comment: You underwent a laparoscopic appendectomy which also showed treated your small-bowel obstruction. I am sending him home on antibiotics due to the culture I obtained during the operation. You should resume her home medications. You may take Tylenol or any [id number] pain reliever 4 year pain if you have any. Provider Discharge Instructions Diet: Diet as Tolerated Activity: Avoid lifting or straining for 3 and half weeks. 10 lb weight limit. He may shower. Avoid pool or hot tub for another [address] until pain free off medication Wound Care Report to your healthcare provider any signs of infection, such as:: chills, fever, night sweats, increased pain and unusual drainage Discharge Data Attending Provider: Quique Chavez Admit Date/Time: 08/27/17 14:43 Quality VTE Deep Vein Thrombosis/Pulmonary Embolism Present on Admission: No
== END 2017-08-31 13:45 | disposition home or self-care (01) | DRG 336 ==
LOC: ED 13:20 → AC 14:44
PROVIDERS: Admitting Provider Specialist; Emergency Provider Emergency Medicine; Visit Provider Specialist
PROC: 0DTJ4ZZ Resection of Appendix, Percutaneous Endoscopic Approach (ICD-10-PCS; CPT 44970; principal; 2017-08-27 16:00)
DX: K35.2 Acute appendicitis with generalized peritonitis (principal); K56.50 Intestinal adhesions [bands], unspecified as to partial versus complete obstruction; I10 Essential (primary) hypertension; E78.00 Pure hypercholesterolemia, unspecified
CPT/HCPCS: 36415; 36591; 74018; 74022; 74177; 80048; 80053; 81001; 81003; 82607; 82746; 83605; 83690; 83735; 84145; 85025; 87070; 87075; 87186; 87205; 87493; 88304; 93005; 94760; 96361; 96365; 96375; 99285; J0295; J0330; J1100; J1650; J2060; J2250; J2405; J2704; J3010; J3420; Q9967

== ENCOUNTER 2017-09-05 16:06 | Inpatient (IN) | payer MEDICARE, OTHER, SELFPAY ==
[2017-08-27 18:32] VITALS: BMI 24.9
[2017-09-05] VITALS (11 sets, daily range): BP systolic 112–151; BP diastolic 60–74; PULSE 59–78; RESP 12–20; TEMP 36.2–37.1; O2SAT 94–100; BMI 24.3; BMI 25.7
--- NOTE | 2017-09-05 16:16 | PC.NURSE ---
States felt cramp in l calf 4 days ago and believes it was a blood clots.
--- NOTE | 2017-09-05 16:37 | DI.CT.S_ITS ---
PROCEDURE: CT ANGIO CHEST PE PROTOCOL INDICATIONS: short of breath, recent surgery TECHNIQUE: After the administration of intravenous contrast, 2 mm thick sections acquired from the pulmonary apices to the posterior costophrenic angles. 3-dimensional maximum intensity projection (MIP) coronal and sagittal reformats were then acquired through the thorax. For radiation dose reduction, the following was used: automated exposure control, adjustment of mA and/or kV according to patient size. COMPARISON: None. FINDINGS: Image quality: Excellent. Pulmonary arteries: Pulmonary arteries are normal in size, and demonstrate no intraluminal filling defects to suggest central pulmonary embolism. Lungs and pleura: Lungs are clear. No pleural effusions or pneumothorax. Central and peripheral airways are patent. Mediastinum: Heart size is enlarged, without pericardial effusion. Coronary artery calcifications. No mediastinal or hilar adenopathy. Thoracic aorta is normal in caliber and enhancement. Esophagus is normal in caliber, without hiatal hernia. Bones and chest wall: No suspicious bony lesions. Ribs and thoracic spine appear intact throughout. Thyroid gland negative. No axillary or supraclavicular adenopathy. Abdomen: Subcentimeter hypodensity seen in the left lobe liver are technically too small to characterize and indeterminate. IMPRESSION: No evidence of pulmonary embolism. No acute consolidation. Scattered subsegmental atelectasis. Dictated by: Pierre Anglin M.D. on 09/05/2017 at 17:30 Approved by: Pirere Anglin M.D. on 09/05/2017 at 17:40
[2017-09-05 16:54] LABS: Add Manual Diff / Slide Review NO; Basophils Percent Auto 0.9 % (0-2); Eosinophils Percent Auto 2.1 % (2-4); Hematocrit 32.8 % (41-53); Hemoglobin 11.6 g/dL (13.5-17.5); Mean Corpuscular HGB Conc 35.3 % (30-36); Mean Corpuscular Hemoglobin 35.1 PG (26-34); Mean Corpuscular Volume 99.4 fL (80-100); Monocytes Percent Auto 11.3 % (3-14); Neutrophils Absolute Auto 4600 /uL (3000-5900); Neutrophils Percent Auto 59.7 % (50-75); Platelet Count 315 X10^3/uL (150-400); Red Cell Distribution Width 12.6 % (11.6-14.8); White Blood Cell Count 7.6 X10^3/uL (4.5-11.0)
--- NOTE | 2017-09-05 16:58 | ED_ITS ---
HPI - Chest Pain General Chief Complaint: Chest Pain Stated Complaint: SOB, CHEST PAIN S/P SURGERY LAST WEEK Time Seen by Provider: 09/05/17 16:35 Source: patient Mode of arrival: ambulatory Limitations: no limitations History of Present Illness HPI narrative: Patient is a 71-year-old male presenting with chest pain and shortness of breath which started while he was walking his dogs. He does have a history of an [place] with a stent that failed 29 years ago. He was also discharged on 08/31/2017 from this hospital after a ruptured appendix where he stayed for 5 days. He no longer is having chest pain and resolved on his way over here. He did take a full-dose aspirin prior to arrival. He denies any productive cough fever abdominal pain. MD complaint: chest pain Duration: intermittent Onset: during exertion Treatments prior to arrival chest pain: aspirin Related Data Home Medications Medication Instructions Recorded Confirmed Naturepathic Meds 1 dose PO DAILY 08/27/17 09/05/17 aspirin 162 mg PO BEDTIME 08/27/17 09/05/17 ezetimibe 10 mg PO QPM 08/27/17 09/05/17 lisinopril 10 mg PO BEDTIME 08/27/17 09/05/17 rosuvastatin 40 mg PO BEDTIME 08/27/17 09/05/17 Previous Rx's Medication Instructions Recorded ciprofloxacin HCl [Cipro] 500 mg PO BID #10 tab 08/30/17 Allergies Allergy/AdvReac Type Severity Reaction Status Date / Time No Known Drug Allergies Allergy Verified 08/27/17 11:14 Review of Systems Review of Systems All systems reviewed & are unremarkable except as noted in HPI and below Constitutional Denies chills, Denies fever(s), Denies lethargy and Denies weakness Cardiovascular Reports chest pain, Denies diaphoresis, Denies syncope, Denies edema, Reports dyspnea and Reports dyspnea on exertion Respiratory Denies cough, Reports dyspnea and Reports dyspnea on exertion Gastrointestinal Gastrointestinal: Denies abdominal pain, Denies change in bowel habits, Denies diarrhea, Denies nausea and Denies vomiting Musculoskeletal Denies back pain, Denies muscle weakness, Denies numbness and Denies tingling Integumentary/Breasts Denies pruritus, Denies erythema, Denies rash and Denies wounds Neurologic Denies syncope, Denies numbness, Denies tingling and Denies weakness PFSH Medical History Essential hypertension (Acute) Hypercholesterolemia (Acute) History of arm fracture (Resolved) History of lower leg fracture (Resolved) History of myocardial infarction in adulthood (Inactive) Surgical History Hx of heart artery stent (Inactive) Social History household members: spouse Smoking Status: Never smoker Exam Initial Vital Signs Initial Vital Signs: Vital Signs Temperature 97.2 F L 09/05/17 16:10 Pulse Rate 78 09/05/17 16:10 Respiratory Rate 20 09/05/17 16:10 Blood Pressure 120/69 09/05/17 16:10 Pulse Oximetry 100 09/05/17 16:10 Const General: cooperative and well developed Nutritional Appearance: well nourished Orientation: alert, awake, oriented x3 and not confused Chest Chest: normal inspection of the chest Resp Effort & Inspection: normal respiratory effort, able to speak in complete sentences, no respiratory distress and no use of accessory muscles Auscultation: clear to auscultation bilaterally, no rales, no rhonchi and no wheezes Cardio Rate: regular rate Rhythm: regular rhythm Heart Sounds: no click, no gallops, no murmurs and no rubs Pulses: normal peripheral pulses GI Inspection: non-distended Palpation: soft, no hepatosplenomegaly, No guarding, No pulsatile mass and No tender Auscultation: normal bowel sounds Skin General: no rashes or lesions noted, No jaundice and No petechiae Neuro General: alert, oriented x3, gait normal and no focal motor deficits Speech: speech normal Course Orders Ordered: ED Orders 09/05/17 16:36 EKG-12 Lead Stat 09/05/17 16:37 CT angio chest PE protocol Stat 09/05/17 16:46 Complete Blood Count AUTO DIFF Stat Comprehensive Metabolic Panel Stat Lipase Stat Troponin with CK Cardiac Panel Stat Vital Signs - 8 hr 09/05/17 16:10 09/05/17 16:30 09/05/17 16:50 Temperature 97.2 F L Pulse Rate 78 72 75 Respiratory Rate 20 20 12 Blood Pressure 120/69 Blood Pressure [Left Arm] 121/70 H Blood Pressure [Right Arm] 121/70 H Pulse Oximetry 100 94 94 09/05/17 17:30 09/05/17 18:05 09/05/17 18:30 Temperature Pulse Rate 59 L 65 75 Respiratory Rate 15 19 14 Blood Pressure Blood Pressure [Left Arm] 125/63 H 125/70 H 125/69 H Blood Pressure [Right Arm] Pulse Oximetry 97 95 99 09/05/17 19:00 Temperature Pulse Rate 73 Respiratory Rate 17 Blood Pressure Blood Pressure [Left Arm] 151/74 H Blood Pressure [Right Arm] Pulse Oximetry 99 MDM - Chest Pain Lab Data Result diagrams: 09/05/17 16:46 09/05/17 16:46 Lab Results 09/05/17 09/05/17 Range/Units 16:46 16:46 WBC 7.6 (4.5-11.0) X10^3/uL RBC 3.30 L (4.5-5.9) X10^6/uL Hgb 11.6 L (13.5-17.5) g/dL Hct 32.8 L (41-53) % MCV 99.4 (80-100) fL MCH 35.1 H (26-34) PG MCHC 35.3 (30-36) % RDW 12.6 (11.6-14.8) % Plt Count 315 (150-400) X10^3/uL Neut % (Auto) 59.7 (50-75) % Lymph % (Auto) 26.0 (25-40) % [place] % (Auto) 11.3 (3-14) % Eos % (Auto) 2.1 (2-4) % Baso % (Auto) 0.9 (0-2) % Neut # (Auto) 4600 (2811-3722) /uL Sodium 149 H (137-145) mmol/L Potassium 3.6 (3.4-5.1) mmol/L Chloride 108 H (98-107) mmol/L Carbon Dioxide 28 (22-32) mmol/L BUN 6 L (9-20) mg/dL Creatinine 1.00 (0.66-1.25) mg/dL Estimated GFR > 60.0 (>60) mL/min BUN/Creatinine Ratio 6.0 (6-22) Glucose 85 (80-110) mg/dL Calcium 8.5 (8.4-10.2) mg/dL Total Bilirubin 0.3 (0.2-1.3) mg/dL AST 54 (17-59) IU/L ALT 42 (21-72) IU/L Alkaline Phosphatase 43 (38-126) U/L Total Creatine Kinase 53 L (55-170) U/L Troponin I 0.045 H (0.01-0.034) ng/mL Total Protein 6.4 (6.3-8.2) g/dL Albumin 3.5 (3.5-5.0) g/dL Globulin 2.9 (1.7-4.1) g/dL Albumin/Globulin Ratio 1.2 (1.0-2.8) Lipase 153 D (23-300) U/L Imaging Data CT scan - chest: Radiologist's impression: Accession Number: [id number] Procedure: CT angio chest PE protocol Ordering Provider: Stephy [place] D.O. PROCEDURE: CT ANGIO CHEST PE PROTOCOL INDICATIONS: short of breath, recent surgery TECHNIQUE: After the administration of intravenous contrast, 2 mm thick sections acquired from the pulmonary apices to the posterior costophrenic angles. 3-dimensional maximum intensity projection (MIP) coronal and sagittal reformats were then acquired through the thorax. For radiation dose reduction, the following was used: automated exposure control, adjustment of mA and/or kV according to patient size. COMPARISON: None. FINDINGS: Image quality: Excellent. Pulmonary arteries: Pulmonary arteries are normal in size, and demonstrate no intraluminal filling defects to suggest central pulmonary embolism. Lungs and pleura: Lungs are clear. No pleural effusions or pneumothorax. Central and peripheral airways are patent. Mediastinum: Heart size is enlarged, without pericardial effusion. Coronary artery calcifications. No mediastinal or hilar adenopathy. Thoracic aorta is normal in caliber and enhancement. Esophagus is normal in caliber, without hiatal hernia. Bones and chest wall: No suspicious bony lesions. Ribs and thoracic spine appear intact throughout. Thyroid gland negative. No axillary or supraclavicular adenopathy. Abdomen: Subcentimeter hypodensity seen in the left lobe liver are technically too small to characterize and indeterminate. IMPRESSION: No evidence of pulmonary embolism. No acute consolidation. Scattered subsegmental atelectasis. Dictated by: Pierre Anglin M.D. on 09/05/2017 at 17:30 Approved by: Pierre Anglin M.D. on 09/05/2017 at 17:40 ECG Data Attestation: I personally reviewed and interpreted this ECG as follows: Prior ECG tracings: available for review Interpretation: Normal sinus rhythm rate 65 Q-waves noted inferiorly similar to previous EKGs no acute ST changes MDM Narrative Medical decision making narrative: The patient has known coronary artery disease with a failed stent. He had exertional dyspnea after major surgery. No evidence of PE. At this time he remains chest pain-free. He will be placed on observation for further evaluation of possible test Dr. Moore happily accepts. Discharge Plan Departure Patient Disposition: Admitted as Observation Clinical Impression: Chest pain Discharge Date/Time: 09/05/17 19:00 Admit Date/Time: 09/05/17 18:59 Admit Provider: Nico Moore V
[2017-09-05 17:07] LABS: Alanine Aminotransferase 42 IU/L (21-72); Albumin 3.5 g/dL (3.5-5.0); Albumin Globulin Ratio 1.2 (1.0-2.8); Alkaline Phosphatase 43 U/L (38-126); Aspartate Aminotransferase 54 IU/L (17-59); Bilirubin Total 0.3 mg/dL (0.2-1.3); Blood Urea Nitrogen 6 mg/dL (9-20); Calcium 8.5 mg/dL (8.4-10.2); Carbon Dioxide 28 mmol/L (22-32); Chloride 108 mmol/L (98-107); Creatine Kinase 53 U/L (55-170); Estimated Glomerular Filt Rate > 60.0 mL/min (>60); Globulin 2.9 g/dL (1.7-4.1); Glucose 85 mg/dL (80-110); HEMOLYSIS < 15 (0-50); Potassium 3.6 mmol/L (3.4-5.1); Sodium 149 mmol/L (137-145); Total Protein 6.4 g/dL (6.3-8.2)
[2017-09-05 17:18] LABS: Troponin I 0.045 ng/mL (0.01-0.034)
[2017-09-05 17:40] LABS: Lipase 153 U/L (23-300)
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
[2017-09-05] MEDS: CIPROFLOXACIN 500 MG TABLET PO (20:55)
[2017-09-05] MEDS: ACETAMINOPHEN 325 MG TABLET 650 MG PO (20:55)
[2017-09-05] MEDS: LISINOPRIL 10 MG TABLET PO (20:56)
[2017-09-05] MEDS: EZETIMIBE 10 MG TABLET PO (20:57)
[2017-09-05] MEDS: ROSUVASTATIN 10 MG TABLET 40 MG PO (20:57)
[2017-09-05 22:16] LABS: Troponin I 0.559 ng/mL (0.01-0.034)
[2017-09-05] MEDS: ENOXAPARIN 80 MG/0.8 ML SYRINGE 70 MG SUBCUT (22:36)
[2017-09-05] MEDS: METOPROLOL 25 MG TABLET PO (22:36)
[2017-09-05 22:39] LABS: Cholesterol 96 mg/dL (140-199); HDL Cholesterol 44 mg/dL (40-60); LDL Cholesterol Calculated 37 mg/dL (<100); Triglycerides 77 mg/dL (35-150)
--- NOTE | 2017-09-05 22:50 | PC.NURSE ---
SECOND TROP. (0.559) CALLED UPDATED WITH RESULTS, NEW ORDERS TAKEN.PATIENT INFROMED OF RESULTS,MEDICATIONS GIVEN
[2017-09-06] VITALS (14 sets, daily range): BP systolic 112–128; BP diastolic 49–73; PULSE 54–65; RESP 14–18; TEMP 36.4–37.9; O2SAT 95–98
--- NOTE | 2017-09-06 | DI.ECHO.S_ITS ---
[facility]---------+ [facility] +---------+ : : [address] : : : : [id number] : : : : Phone: [phone] Echocardiogram Report + + :Name: SHAMAR RUIZ Study Date: 09/06/2017 Height: 64 in : :[facility] Weight: 142 lb : : Gender: Male BSA: 1.7 m2 : :: 1945 Age: 71 yrs BP: 146/75 mmHg: :Reason For Study: CHEST PAIN, SOB : : Performed By: Stephanie Nixon : :Referring: YARON WALKER : + + Interpretation Summary 1. Normal left ventricular size, wall thickness and systolic function with an estimated EF of 60-65% 2. Normal right ventricular size and systolic function. The estimated right atrial pressure is low. 3. Moderate, anteriorly directed mitral regurgitation into a mildly dilated left atrium. There is no old study for comparison Procedure: A two-dimensional transthoracic echocardiogram with color flow and Doppler was performed. The study quality was technically adequate. Comparison is made with the echocardiogram of 05/04/2008. The heart rate ranged between 57-62 bpm during the study. Left Ventricle: The left ventricle is normal in size, wall thickness, and systolic function without any focal wall motion abnormalities. The ejection fraction is estimated to be 60-65%. Right Ventricle: The right ventricle is normal in size and function. Atria: The left atrium is mildly dilated. Right atrial size is normal. No color doppler evidence for an ASD. Mitral Valve: Leaflets appear mildly thickened. There is prolapse of the posterior mitral valve leaflet(s). The mitral regurgitant jet is eccentrically directed. There is moderate mitral regurgitation. Aortic Valve: The aortic valve is trileaflet. The aortic valve opens well. There is mild aortic valve sclerosis. There is trace aortic regurgitation. Tricuspid Valve: The tricuspid valve leaflets are thin and pliable. There is a trace or physiologic amount of tricuspid regurgitation. Pulmonary artery pressures cannot be estimated because of the lack of a measurable TR jet velocity. Pulmonic Valve: The pulmonic valve is not well visualized. There is mild pulmonic regurgitation. Great Vessels: The aortic root is normal size. The ascending aorta is normal in size. The aortic arch is normal in size. The IVC is of normal diameter and collapses greater than 50% with a sniff. This suggests a low right atrial pressure of 3 mm Hg. Pericardium/ Pleura There is no pericardial effusion. There is no pleural effusion. MMode/2D Measurements & Calculations LVIDd: 4.5 cm LVOT diam: 1.9 cm LVIDs: 2.9 cm Ao root diam: 3.0 cm FS: 35.7 % asc Aorta Diam: 2.7 cm EPSS: 0.37 cm Ao Arch Diam (Prox Trans): 2.2 cm IVSd: 0.98 cm LVPWd: 0.91 cm LV amador. diameter/BSA (cm/m^2): 2.6 LV sys. diameter/BSA (cm/m^2): 1.7 LA A2 area: 17.8 cm2 RA long axis: 4.8 cm LA A4 area: 23.8 cm2 RA area: 17.0 cm2 LA length (vol): 5.3 cm RA vol: 51.0 ml LA vol: 68.4 ml RA : 30.2 ml/m2 LA vol index: 40.5 ml/m2 IVC diam: 1.8 cm RVD1 (basal): 3.7 cm TAPSE: 2.2 cm Doppler Measurements & Calculations Ao V2 max: 138.6 cm/sec LVOT Max Jorgito: 114.8 cm/sec Ao V2 mean: 89.5 cm/sec LV V1 max P.3 mmHg Ao max P.7 mmHg LV V1 VTI: 22.9 cm Ao mean P.6 mmHg CORINA(I,D): 2.6 cm2 Ao V2 VTI: 25.3 cm CORINA(V,D): 2.4 cm2 sev ratio: 0.91 CORINA indexed to BSA (cm^2/m^2): 1.5 MV E max jorgito: 72.6 cm/sec TR max jorgito: 174.9 cm/sec MV A max jorgito: 82.7 cm/sec TR max P.2 mmHg MV E/A: 0.88 Med Peak E' Jorgito: 6.3 cm/sec E/E' med: 11.5 Lat Peak E' Jorgito: 11.1 cm/sec E/E' lat: 6.5 E/e' average: 9.0 MV dec time: 0.24 sec Reading Physician:BRYN
[2017-09-06 03:47] LABS: Troponin I 0.556 ng/mL (0.01-0.034)
[2017-09-06] MEDS: ACETAMINOPHEN 325 MG TABLET 650 MG PO ×3 (05:29→19:46)
[2017-09-06] MEDS: METOPROLOL 25 MG TABLET PO ×3 (05:29→18:30)
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
[2017-09-06] MEDS: HEPARIN DRIP 25,000 UNIT/500 ML IV.SOLN 16.32 UNIT IV (09:38)
[2017-09-06 09:41] LABS: Hematocrit 36.7 % (41-53); Hemoglobin 12.5 g/dL (13.5-17.5); Platelet Count 341 X10^3/uL (150-400)
[2017-09-06 09:43] LABS: INR 1.1 (0.9-1.3); Prothrombin Time 11.6 SECONDS (10.1-12.7)
[2017-09-06 09:46] LABS: PTT Partial Thromboplastin Tim 33 SECONDS (26.4-36.2)
[2017-09-06] MEDS: CIPROFLOXACIN 500 MG TABLET PO ×2 (09:50→21:10)
[2017-09-06] MEDS: HEPARIN 5,000 UNIT/ML VIAL 4000 UNIT IV (09:50)
[2017-09-06] MEDS: ASPIRIN EC 325 MG TABLET PO (09:53)
[2017-09-06 10:05] LABS: Troponin I 0.343 ng/mL (0.01-0.034)
--- NOTE | 2017-09-06 10:38 | PC.NURSE ---
pt transfered to 101 as floor care with Heparin gtt. Heparin gtt initiated at 800units/hr. pt denies SOB or chest pain
[2017-09-06] MEDS: CLOPIDOGREL 300 MG TABLET PO (13:25)
--- NOTE | 2017-09-06 15:32 | CM.DPNOTE ---
Pt familiar to this DISPUTE SPECIALIST from recent admission. Met w/pt and his very briefly while down in the ICU . Pt being trnsf to [facility] for continued cardio w/u. Pt's Lorene has a scheduled hip surgery coming up. Both pt and feel they have the support from friends needed to manage both pt and Lorene's needs. This DISPUTE SPECIALIST encouraged pt/spouse to contact DC Certified Energy Manager at [facility] w/Qs if they arise. Trnsf to [facility] today. RANCHO
--- NOTE | 2017-09-06 16:17 | PC.NURSE ---
1600- Pt is resting quietly. Bedside echo completed no result yet. Pt denies chest pain. 02 placed on patient at 2 liters cannula per MD order. Room air saturation 98% Checked with [facility] regarding a bed. The supervisor shipping room did not anticipate a bed becoming available tonight. Pt is aware. Will monitor.
[2017-09-06 16:32] LABS: PTT Partial Thromboplastin Tim 62 SECONDS (26.4-36.2)
[2017-09-06] MEDS: diphenhydrAMINE 25 MG TABLET PO (21:10)
[2017-09-06] MEDS: LISINOPRIL 10 MG TABLET PO (21:10)
[2017-09-06] MEDS: ROSUVASTATIN 10 MG TABLET 40 MG PO (21:11)
[2017-09-07] VITALS (7 sets, daily range): BP systolic 114–134; BP diastolic 62–67; PULSE 54–67; RESP 14–17; TEMP 36.8–37.3; O2SAT 96–100
[2017-09-07 04:55] LABS: PTT Partial Thromboplastin Tim 59 SECONDS (26.4-36.2)
[2017-09-07 05:10] LABS: Troponin I 0.156 ng/mL (0.01-0.034)
--- NOTE | 2017-09-07 06:30 | PC.NURSE ---
Pt remains CP free overnight. TNI continues to trend down. Tele SB, rate 50's. Metoprolol dose held. Heparin GTT infusing per protocol at 800 units/hour. 0500 PTT 59 (therapeutic), rate continued. No acute changes overnight.
[2017-09-07] MEDS: CLOPIDOGREL 75 MG TABLET PO (08:41)
[2017-09-07] MEDS: ASPIRIN EC 325 MG TABLET PO (08:41)
[2017-09-07] MEDS: CIPROFLOXACIN 500 MG TABLET PO (08:41)
--- NOTE | 2017-09-07 12:02 | PC.NURSE ---
Dr. Wolff rounding on pt, asked for parameters for metoprolol, Dr. Hamilton sts to continue to give as ordered, pt HR60-70 throughout shift, please see charting for full assessment
--- NOTE | 2017-09-07 12:05 | P.PN_ITS ---
Subjective Date Patient Seen: 09/07/17 Time Patient Seen: 12:02 Interval history: He denies chest pain. He is stable and we are waiting for bed to open up at [facility] Exam Vital Signs (past 8 hours): Vital Signs - 8 hr 3 09/07/17 07:49 09/07/17 08:00 09/07/17 11:55 Temperature 98.3 F Pulse Rate 67 67 Respiratory Rate 16 16 Blood Pressure 134/66 H 114/62 Pulse Oximetry 96 96 99 Pulse Oximetry 99 Oxygen Delivery Method Room Air Oxygen Flow Rate 2 Narrative Exam Narrative: He is in no acute distress resting comfortably sitting up in a chair. Objective Labs Result Diagrams: 09/06/17 09:26 09/05/17 16:46 Labs: Laboratory Results - last 24 hr 09/06/17 09/07/17 09/07/17 15:50 04:38 04:38 APTT 62 H D 59 H Troponin I 0.156 H* Assessment & Plan Plan: Assessment/Plan Narrative: One. Acute non ST segment elevation myocardial infarction we are waiting for a bed to open up at [facility] to transfer him he seems to be stable continue with current heparin and beta son. His troponin has dropped again to words normal. 2. History of coronary disease 3. Hyperlipidemia 4. Recent appendicitis status post appendectomy on August 27, 2017. Quality VTE Deep Vein Thrombosis/Pulmonary Embolism Present on Admission: No
[2017-09-07] MEDS: METOPROLOL 25 MG TABLET PO (12:07)
--- NOTE | 2017-09-07 16:16 | P.DS_ITS ---
History of Present Illness Chief complaint: SOB, CHEST PAIN S/P SURGERY LAST WEEK Discharge Providers Date of admission: 09/06/17 08:39 Consults: 09/06/17 09:04 Consult to Physician Routine Comment: Consulting Provider: Rancho Lema Reason for consultation: AR Has provider been notified: Yes Discharge provider: Casa Wolff MD Summary Discharge Diagnosis: One. Acute non ST segment elevation myocardial infarction 2. Coronary artery disease 3. Hyperlipidemia 4. Recent appendectomy August 27 Hospital Course: Patient admitted with chest pain enzymes positive at troponin at 0.55 and has decreased his troponin out of 0.15. Currently chest pain free. He is treated with aspirin metoprolol IV heparin. A bed has opened up at [facility] and we are transferring him to [facility] for cardiology consult and possible procedure Time Spent with Patient Greater than 30 minutes Exam Vital Signs (past 8 hours): Vital Signs - 8 hr 3 09/07/17 11:55 09/07/17 15:25 Temperature 99.1 F Pulse Rate 67 54 L Respiratory Rate 16 16 Blood Pressure 114/62 130/67 H Pulse Oximetry 99 100 Pulse Oximetry 100 Oxygen Delivery Method Room Air Oxygen Flow Rate 2 Objective Labs Result Diagrams: 09/06/17 09:26 09/05/17 16:46 Labs: Laboratory Results - last 24 hr 09/06/17 09/07/17 09/07/17 15:50 04:38 04:38 APTT 62 H D 59 H Troponin I 0.156 H* Discharge Plan Discharge Plan Transfer to: [facility] Under care of provider: Dr. Lema Transportation: Ambulance I certify the postop hospital correction care is medically necessary on a continuing basis for any conditions for which he/ she received care during this hospitalization.: Yes The receiving facility has agreed to accept transfer and provide medical treatment.: Yes Discharge Med Rec/Prescriptions Discharge Orders: Discharge (Order); Ordered 09/07/17 Ordered By: Casa Wolff Provider Discharge Instructions Diet: Nothing by Mouth Discharge Data Attending Provider: Nico Moore V Admit Date/Time: 09/06/17 08:39 Quality VTE Deep Vein Thrombosis/Pulmonary Embolism Present on Admission: No
[2017-09-07] MEDS: EZETIMIBE 10 MG TABLET PO (16:29)
[2017-09-07] MEDS: HEPARIN DRIP 25,000 UNIT/500 ML IV.SOLN 16.32 UNIT IV (16:50)
--- NOTE | 2017-09-07 16:58 | PC.NURSE ---
1650- Pt transported via EMS to [facility]. Pt had no c/o chest pain or SOB at the time of discharge. Report called to [place] [facility] at [facility]. Report given to EMS prior to discharge. Heparin gtt infusing at 800 units per hour per order. Pt heart rate 56. Pt chart copied and sent with patient. Stable at the time of discharge.
== END 2017-09-07 17:02 | disposition short-term general hospital (02) | DRG 281 ==
LOC: ED 18:40 → AC 19:00 → ICU 09-06 13:23
PROVIDERS: Admitting Provider Internal Medicine; Emergency Provider Emergency Medicine; Referring Provider Specialist; Visit Provider Internal Medicine
DX: I21.4 Non-ST elevation (NSTEMI) myocardial infarction (principal); I97.190 Other postprocedural cardiac functional disturbances following cardiac surgery; T82.858A Stenosis of other vascular prosthetic devices, implants and grafts, initial encounter; I25.10 Atherosclerotic heart disease of native coronary artery without angina pectoris; Z95.5 Presence of coronary angioplasty implant and graft; Z98.890 Other specified postprocedural states; E78.5 Hyperlipidemia, unspecified
CPT/HCPCS: 36415; 36591; 71275; 80053; 80061; 82550; 82553; 83690; 84484; 85014; 85018; 85025; 85049; 85610; 85730; 93005; 93306; 99284; 99285; G0378; J1644; J1650

== ENCOUNTER → 2018-11-20 10:58 | Outpatient (CLI) | payer MEDICARE, OTHER, SELFPAY ==
[2017-09-05 20:03] VITALS: BMI 25.7
[2018-11-20 12:45] LABS: Prostate Specific Antigen Scrn 0.941 ng/mL (0.1-4.0)
== END ==
PROVIDERS: PCP Family Medicine; Visit Provider Family Medicine
DX: Z12.5 Encounter for screening for malignant neoplasm of prostate (principal)
CPT/HCPCS: 36415; G0103

== ENCOUNTER → 2019-08-10 12:38 | Outpatient (CLI) | payer MEDICARE, OTHER, SELFPAY ==
[2017-09-05 20:03] VITALS: BMI 25.7
[2019-08-10 14:15] LABS: Add Manual Diff / Slide Review NO; Basophils Absolute Auto 0 /uL (0-100); Basophils Percent Auto 0.6 % (0-2); Eosinophils Absolute Auto 0 /uL (0-450); Eosinophils Percent Auto 0.3 % (2-4); Hematocrit 37.9 % (41-53); Hemoglobin 13.5 g/dL (13.5-17.5); Lymphocytes Absolute Auto 1000 /uL (1100-4500); Lymphocytes Percent Auto 16.9 % (25-40); Mean Corpuscular HGB Conc 35.5 % (30-36); Mean Corpuscular Hemoglobin 37.8 PG (26-34); Mean Corpuscular Volume 106.4 fL (80-100); Monocytes Absolute Auto 600 /uL (0-900); Neutrophils Absolute Auto 4100 /uL (1500-7000); Neutrophils Percent Auto 71.2 % (50-75); Platelet Count 163 X10^3/uL (150-400); Red Blood Cell Count 3.56 X10^6/uL (4.5-5.9); White Blood Cell Count 5.7 X10^3/uL (4.5-11.0)
[2019-08-10 14:32] LABS: BUN Creatinine Ratio 9.6 (6-22); Blood Urea Nitrogen 7 mg/dL (9-20); Calcium 9.6 mg/dL (8.4-10.2); Carbon Dioxide 25 mmol/L (22-32); Chloride 97 mmol/L (98-107); Estimated Glomerular Filt Rate > 60.0 mL/min (>60); Glucose 80 mg/dL (80-110); HEMOLYSIS < 15 (0-50); Potassium 4.6 mmol/L (3.4-5.1); Sodium 134 mmol/L (137-145)
[2019-08-10 15:02] LABS: TSH w/ Reflex to FT4 1.26 uIU/mL (0.47-4.68)
[2019-08-10 16:51] LABS: Alanine Aminotransferase 78 IU/L (<50); Albumin 4.7 g/dL (3.5-5.0); Albumin Globulin Ratio 1.4 (1.0-2.8); Alkaline Phosphatase 61 U/L (38-126); Aspartate Aminotransferase 174 IU/L (17-59); Bilirubin Total 0.6 mg/dL (0.2-1.3); Bilirubin Unconjugated 0.3 mg/dL (0.0-1.1); Globulin 3.3 g/dL (1.7-4.1); HEMOLYSIS < 15 (0-50)
[2019-08-10 17:39] LABS: Vitamin B12 564 pg/mL (239-931)
== END ==
PROVIDERS: PCP Family Medicine; Referring Provider Family Medicine; Visit Provider Family Medicine
DX: F32.9 Major depressive disorder, single episode, unspecified (principal); I25.10 Atherosclerotic heart disease of native coronary artery without angina pectoris; D75.89 Other specified diseases of blood and blood-forming organs
CPT/HCPCS: 36415; 80048; 80076; 82607; 84443; 85025

== ENCOUNTER → 2020-08-08 08:49 | Outpatient (CLI) | payer MEDICARE, OTHER, SELFPAY ==
[2017-09-05 20:03] VITALS: BMI 25.7
--- NOTE | 2020-08-08 08:51 | DI.US.S_ITS ---
PROCEDURE: US CAROTID DOPPLER BI INDICATIONS: CAROTID ARTERY STENOSIS TECHNIQUE: Color and pulse Doppler interrogation was performed of both carotid systems, with image documentation and velocity measurements. COMPARISON: None. FINDINGS: Stenosis calculations are based on SRU (Society of Radiologists in Ultrasound) criteria. Right side: Brachial blood pressure: 112/65 mm Hg. Common carotid artery peak systolic velocity: 99 cm/sec. Internal carotid artery peak systolic velocity: 136 cm/sec. Internal carotid artery end diastolic velocity: 26 cm/sec. External carotid artery peak systolic velocity: 142 cm/sec. ICA/CCA peak systolic ratio: 1.37 Grimaldo scale imaging description: Moderate atherosclerotic changes are seen. Percent internal carotid artery stenosis: 50-69% by velocity criteria. Vertebral artery: Flow direction is antegrade. Left side: Brachial blood pressure: 119/66 mm Hg. Common carotid artery peak systolic velocity: 86 cm/sec. Internal carotid artery peak systolic velocity: 133 cm/sec. Internal carotid artery end diastolic velocity: Bony 9 cm/sec. External carotid artery peak systolic velocity: 120 cm/sec. ICA/CCA peak systolic ratio: 1.62 Grimaldo scale imaging description: Moderate atherosclerotic changes are seen, with shadowing. Percent internal carotid artery stenosis: 50-69% by velocity criteria Vertebral artery: Flow direction is antegrade. IMPRESSION: Moderate stenoses (50-69%) can be seen within both internal carotid arteries. The true degree of stenosis is felt most likely to be at the lower end of this range. Dictated by: Brnadon Montemayor M.D. on 08/08/2020 at 10:22 Approved by: Brandon Montemayor M.D. on 08/08/2020 at 10:23
--- NOTE | 2020-08-08 08:51 | DI.ECHO.S_ITS ---
[facility]---------+ [facility] +---------+ : : [address] : : : : [id number] : : : : Phone: [phone] +---------+ Echocardiogram Report + + :Name: SHAMAR RUIZ Study Date: 08/08/2020 Height: 64 in : :[facility] ReadingLocation: Weight: 135 lb : : Gender: Male BSA: 1.7 m2 : :: 1945 Age: 74 yrs BP: 148/64 mmHg: :Reason For Study: MITRAL INSUFFICIENCY : :Ordering Physician: MIKE, : :PREETI Performed By: Margie Goldsmith : :Referring: PREETI MCKEON : + + Interpretation Summary The left ventricle is normal in size and wall thickness. The ejection fraction is estimated to be 55-60%. There is a hypokinesis of basal to mid inferior wall which was seen in previous echo as well. There is a tardokinesis of basal posterior wall. The right ventricle is normal size. Right ventricular systolic function is mildly reduced. There is moderate mitral regurgitation. The mitral regurgitant jet is eccentrically directed. Compared to the prior echo study, there has been no change in the severity of mitral regurgitation. No definitive mitral valve prolapse seen. There is mild tricuspid regurgitation. The right ventricular systolic pressure is estimated to be at least 25 mmHg based on an estimated right atrial pressure of 3 mm Hg. Mild atherosclerotic plaque(s) in the aortic arch. Procedure: A two-dimensional transthoracic echocardiogram with color flow and Doppler was performed. The study quality was technically adequate. Comparison is made with the echocardiogram of 09/06/2017. The patient was in sinus rhythm with heart rates between 73-88 bpm during the exam. Left Ventricle: The left ventricle is normal in size and wall thickness. There is no thrombus. The ejection fraction is estimated to be 55-60%. Septal motion is consistent with conduction abnormality. There is a hypokinesis of basal to mid inferior wall which was seen in previous echo as well. There is a tardokinesis of basal posterior wall. Diastolic parameters suggest a relaxation abnormality of the left ventricle, consistent with probable normal filling pressures. Right Ventricle: The right ventricle is normal size. Right ventricular systolic function is mildly reduced. Atria: The left atrium is mildly dilated. There has been no significant change since the previous study. Right atrial size is normal. There is no Doppler evidence for an interatrial shunt. The interatrial septum is thin and hypermobile. Mitral Valve: The mitral valve leaflets appear mildly thickened, but open well. There is mild mitral annular calcification. No definitive mitral valve prolapse seen. The mitral valve chordae are thickened and/or calcified. The mitral valve leaflets are mildly calcified. There is moderate mitral regurgitation. The mitral regurgitant jet is eccentrically directed. Compared to the prior echo study, there has been no change in the severity of mitral regurgitation. Aortic Valve: The aortic valve opens well. The aortic valve is trileaflet. The aortic valve is mildly calcified. There is discrete nodular thickening of the right coronary cusp. There is no aortic valve stenosis. There is trace aortic regurgitation. Tricuspid Valve: The tricuspid valve is normal. There is mild tricuspid regurgitation. The right ventricular systolic pressure is estimated to be at least 25 mmHg based on an estimated right atrial pressure of 3 mm Hg. Pulmonic Valve: The pulmonic valve is not well visualized. There is trace pulmonic regurgitation. Great Vessels: The aortic root is normal size. The ascending aorta could not be visualized. Mild atherosclerotic plaque(s) in the aortic arch. The IVC is of normal diameter and collapses greater than 50% with a sniff. This suggests a low right atrial pressure of 3 mm Hg. Pericardium/ Pleura There is no pericardial effusion. There is no pleural effusion. MMode/2D Measurements & Calculations LVIDd: 4.5 cm LVOT diam: 2.0 cm LVIDs: 3.4 cm Ao root diam: 3.1 cm FS: 25.6 % Ao Arch Diam (Prox Trans): 2.3 cm EPSS: 0.72 cm IVSd: 0.93 cm LVPWd: 1.0 cm LV amador. diameter/BSA (cm/m^2): 2.7 LV sys. diameter/BSA (cm/m^2): 2.0 LA A2 area: 19.9 cm2 RA long axis: 4.9 cm LA A4 area: 15.1 cm2 RA area: 13.3 cm2 LA length (vol): 4.7 cm RA vol: 30.9 ml LA vol: 53.8 ml RA : 18.7 ml/m2 LA vol index: 32.5 ml/m2 IVC diam: 0.96 cm RVD1 (basal): 3.5 cm TAPSE: 1.4 cm Doppler Measurements & Calculations Ao V2 max: 176.3 cm/sec LVOT Max Jorgito: 115.5 cm/sec Ao V2 mean: 124.6 cm/sec LV V1 max P.4 mmHg Ao max P.4 mmHg LV V1 VTI: 19.3 cm Ao mean P.0 mmHg CORINA(I,D): 2.1 cm2 Ao V2 VTI: 28.9 cm CORINA(V,D): 2.1 cm2 sev ratio: 0.67 CORINA indexed to BSA (cm^2/m^2): 1.3 MV E max jorgito: 78.1 cm/sec TR max jorgito: 235.8 cm/sec MV A max jorgito: 83.1 cm/sec TR max P.2 mmHg MV E/A: 0.94 PA V2 max: 95.3 cm/sec Med Peak E' Jorgito: 5.9 cm/sec PA V2 mean: 67.2 cm/sec E/E' med: 13.2 PA mean P.0 mmHg Lat Peak E' Jorgito: 13.1 cm/sec PA pr(Accel): 34.5 mmHg E/E' lat: 5.9 E/e' average: 9.6 MV dec time: 0.26 sec SV(LVOT): 61.8 ml Reading Physician:04:22 PM
== END ==
PROVIDERS: PCP Nurse Practitioner Family; Referring Provider Internal Medicine Cardiovascular Disease; Visit Provider Internal Medicine Cardiovascular Disease
DX: I65.23 Occlusion and stenosis of bilateral carotid arteries (principal); I08.1 Rheumatic disorders of both mitral and tricuspid valves; I70.0 Atherosclerosis of aorta
CPT/HCPCS: 93306; 93880

== ENCOUNTER → 2022-11-13 11:49 | Outpatient (CLI) | payer MEDICARE, OTHER, SELFPAY ==
[2017-09-05 20:03] VITALS: BMI 25.7
--- NOTE | 2022-11-13 | DI.ECHO.S_ITS ---
[facility] +---------+ [facility] +---------+ : : [address] : : : : [id number] : : : : Phone: [phone] +---------+ Echocardiogram Report + + :Name: SHAMAR RUIZ Study Date: 11/13/2022 Height: 65 in : :[facility] ReadingLocation: Weight: 120 lb : : Gender: Male BSA: 1.6 m2 : :: 1945 Age: 76 yrs BP: 124/71 mmHg: :Reason For Study: MITRAL VALVE INSUFFICIENCY : :Ordering Physician: MIKE, : :PREETI Performed By: Margie Goldsmith : :Referring: PREETI MCKEON : + + Interpretation Summary The left ventricle is normal in size and wall thickness. LVIDd: 4.6 cm LVIDs: 3.4 cm The ejection fraction is estimated to be 50-55%. Previous LVEF 55 to 60%. The right ventricle is normal size. Right ventricular systolic function is mildly reduced. Right ventricular systolic function has not changed since previous exam. There is no obvious significant mitral valve prolapse however there is some buckling of the tip of the posterior mitral leaflet during closure. There is moderate mitral regurgitation. The mitral regurgitant jet is eccentrically directed. Compared to the prior echo study, there has been no change in the severity of mitral regurgitation. There is mild tricuspid regurgitation. Compared to the prior echo exam, there has been no change in TR severity. The right ventricular systolic pressure is estimated to be at least 25 mmHg based on an estimated right atrial pressure of 3 mm Hg. Procedure: A two-dimensional transthoracic echocardiogram with color flow and Doppler was performed. The study quality was technically adequate. Comparison is made with the echocardiogram of 08/08/2020. The patient was in sinus bradycardia with heart rates between 51-63 bpm during the exam. Left Ventricle: The left ventricle is normal in size and wall thickness. There is no thrombus. The ejection fraction is estimated to be 50-55%. There i is a severe hypokinesis to akinesis of inferior wall which was seen in previous echo as well. There is a tardokinesis of basal posterior wall. No significant change from the previous study. MV E/A: 1.0 Med Peak E' Jorgito: 5.7 cm/sec E/E' med: 8.6. Right Ventricle: The right ventricle is normal size. Right ventricular systolic function is mildly reduced. Right ventricular systolic function has not changed since previous exam. Atria: The left atrium is mildly dilated. There has been no significant change since the previous study. Right atrial size is normal. There is no Doppler evidence for an interatrial shunt. Mitral Valve: The mitral valve leaflets appear mildly thickened, but open well. The mitral valve leaflets are mildly calcified. There is mild mitral annular calcification. The mitral valve chordae are thickened and/or calcified. There is no obvious significant mitral valve prolapse however there is some buckling of the tip of the posterior mitral leaflet during closure. There is moderate mitral regurgitation. The mitral regurgitant jet is eccentrically directed. Compared to the prior echo study, there has been no change in the severity of mitral regurgitation. Aortic Valve: The aortic valve is trileaflet. The aortic valve is slightly calcified. There is no aortic valve stenosis. There is trace aortic regurgitation. There has been no significant change since the previous study. Tricuspid Valve: The tricuspid valve is normal. There is mild tricuspid regurgitation. The right ventricular systolic pressure is estimated to be at least 25 mmHg based on an estimated right atrial pressure of 3 mm Hg. Compared to the prior echo exam, there has been no change in TR severity. Pulmonic Valve: The pulmonic valve leaflets are thin and pliable; valve motion is normal. There is mild to moderate pulmonic regurgitation. Great Vessels: The aortic root is normal size. The dimensions of the ascending aorta are normal. The IVC is of normal diameter and collapses greater than 50% with a sniff. This suggests a low right atrial pressure of 3 mm Hg. Pericardium/ Pleura There is no pericardial effusion. There is no pleural effusion. MMode/2D Measurements & Calculations LVIDd: 4.6 cm LVOT diam: 2.0 cm LVIDs: 3.4 cm Ao root diam: 2.9 cm FS: 26.0 % asc Aorta Diam: 3.0 cm EPSS: 0.72 cm Ao Arch Diam (Prox Trans): 2.9 cm IVSd: 0.66 cm LVPWd: 0.78 cm LV amador. diameter/BSA (cm/m^2): 2.9 LV sys. diameter/BSA (cm/m^2): 2.1 LA A2 area: 21.4 cm2 RA long axis: 4.5 cm LA A4 area: 16.1 cm2 RA area: 12.4 cm2 LA length (vol): 4.6 cm RA vol: 29.2 ml LA vol: 63.2 ml RA : 18.4 ml/m2 LA vol index: 39.7 ml/m2 IVC diam: 1.0 cm RVD1 (basal): 3.6 cm RVD2 (mid): 3.1 cm TAPSE: 1.2 cm Doppler Measurements & Calculations Ao V2 max: 143.1 cm/sec LVOT Max Jorgito: 104.0 cm/sec Ao V2 mean: 105.9 cm/sec LV V1 max P.3 mmHg Ao max P.2 mmHg LV V1 VTI: 22.4 cm Ao mean P.9 mmHg CORINA(I,D): 2.5 cm2 Ao V2 VTI: 28.1 cm CORINA(V,D): 2.3 cm2 sev ratio: 0.80 CORINA indexed to BSA (cm^2/m^2): 1.6 MV E max jorgito: 49.2 cm/sec TR max jorgito: 203.7 cm/sec MV A max jorgito: 46.9 cm/sec TR max P.6 mmHg MV E/A: 1.0 PA V2 max: 86.0 cm/sec Med Peak E' Jorgito: 5.7 cm/sec PA V2 mean: 61.7 cm/sec E/E' med: 8.6 PA mean P.7 mmHg Lat Peak E' Jorgito: 10.8 cm/sec PA pr(Accel): 27.6 mmHg E/E' lat: 4.6 E/e' average: 6.6 MV dec time: 0.26 sec MR PISA: 4.4 cm2 SV(LVOT): 69.8 ml MR flow rate: 161.1 cm3/sec MR PISA radius: 0.83 cm Reading Physician:01:05 PM
== END ==
PROVIDERS: PCP Nurse Practitioner Family; Referring Provider Internal Medicine Cardiovascular Disease; Visit Provider Internal Medicine Cardiovascular Disease
DX: I08.1 Rheumatic disorders of both mitral and tricuspid valves (principal)
CPT/HCPCS: 93306